=== PATIENT | female | born 1965 | race Caucasian/White ===

== ENCOUNTER → 2016-12-03 | Outpatient (CLI) | payer OTHER ==
[~2016-12-03] MED LIST: LORA10TA2 PO
[2016-12-03 19:31] LABS: ANION GAP 8 MEQ/L (8-16); BLOOD UREA NITROGEN 13 MG/DL (7-18); CARBON DIOXIDE LEVEL 28 MEQ/L (21-32); CHLORIDE LEVEL 105 MEQ/L (98-107); CREATININE FOR GFR 0.71 MG/DL (0.55-1.02); GLOMERULAR FILTRATION RATE > 60.0 (>51); GLUCOSE, FASTING 69 MG/DL (70-105); POTASSIUM SERUM 4.2 MEQ/L (3.5-5.1); SODIUM LEVEL 141 MEQ/L (136-145)
[2016-12-03 19:59] LABS: BASO # 0.2 K/mm3 (0.0-0.2); BASO % 1.7 % (0.0-1.0); EOS # 0.1 K/mm3 (0.0-0.50); LARGE UNSTAINED CELL # 0.1 K/mm3 (0.0-0.4); LARGE UNSTAINED CELL % 1.1 % (0.0-4.0); LYMPH # 2.1 K/mm3 (1.5-4.5); LYMPH % 21.9 % (24.0-44.0); MEAN CORPUSCULAR HEMOGLOBIN 30.6 pg (27.0-33.0); MEAN CORPUSCULAR HGB CONC 32.4 g/dl (32.0-36.5); MEAN CORPUSCULAR VOLUME 94.5 fl (80.0-96.0); MONO # 0.4 K/mm3 (0.0-0.8); NEUTROPHILS # 6.3 K/mm3 (1.8-7.7); NEUTROPHILS % 70.4 % (36.0-66.0); PLATELET COUNT, AUTOMATED 202 k/mm3 (150-450); RED CELL DISTRIBUTION WIDTH 13.5 % (11.5-14.5)
== END ==
LOC: M WUC 13:55
PROVIDERS: ATTEND Emergency Medicine
DX: N81.4 Uterovaginal prolapse, unspecified (principal)

== ENCOUNTER 2016-12-13 05:34 | Day surgery (SDC) | payer OTHER ==
[2016-12-13] VITALS (7 sets, daily range): BP systolic 97–128; BP diastolic 60–71
[~2016-12-13] VITALS: Ht 167.6 cm; Wt 72.6 kg
[2016-12-13] MEDS ORDERED: CIPROFLOXACIN 400 MG in APPROPRIATE DILUENT 1 EA IV ONE (05:45)
[2016-12-13] MEDS ORDERED: CLINDAMYCIN 900 MG in APPROPRIATE DILUENT 1 EA IV ONE (05:45)
[2016-12-13] MEDS: LR 1,000 ML IV SCH ×4 (06:55→20:15)
[2016-12-13] MEDS ORDERED: BUPIVACAINE/EPIN 0.25% 30 ML VIAL As Ordered ONE ×2 (08:18→09:10)
[2016-12-13] MEDS ORDERED: BUPIVACAINE HCL 0.25% 30 ML VIAL As Ordered ONE (08:24)
[2016-12-13] MEDS ORDERED: MIDAZOLAM INJ 2 MG/2 ML VIAL (J2250) As Ordered ONE (08:39)
[2016-12-13] MEDS ORDERED: PROPOFOL 500 MG/50 ML VIAL As Ordered ONE (08:39)
[2016-12-13] MEDS ORDERED: fentaNYL 250 MCG/5 ML INJECTION (J3010) As Ordered ONE (08:39)
[2016-12-13] MEDS ORDERED: LIDOCAINE 2% INJ 100 MG/5 ML SDV (FOR ANES.) As Ordered ONE (08:40)
[2016-12-13] MEDS ORDERED: PHENYLephrine HCL 500 MCG/5 ML (100MCG/ML) SYRINGE (J2370) As Ordered ONE (08:40)
[2016-12-13] MEDS ORDERED: ONDANSETRON 4MG/2ML VIAL (J2405) As Ordered ONE (08:40)
[2016-12-13] MEDS ORDERED: dexameTHASONE 4 MG/ML 1ML VIAL (J1100) As Ordered ONE ×4 (08:40)
[2016-12-13] MEDS ORDERED: ePHEDrine SULFATE 25 MG/5 ML(5MG/ML) SYRINGE As Ordered ONE (08:40)
[2016-12-13] MEDS ORDERED: ROCURONIUM BROMIDE 50 MG/5 ML VIAL As Ordered ONE ×2 (08:40)
[2016-12-13] MEDS ORDERED: KETOROLAC 60 MG/2 ML VIAL (J1885) As Ordered ONE (10:18)
[2016-12-13] MEDS ORDERED: ESTROGENS VAGINAL CREAM 30GM As Ordered ONE (10:33)
[2016-12-13] MEDS ORDERED: BUPIVACAINE HCL 0.25% 30 ML VIAL XX ONE (10:41)
[2016-12-13] MEDS: BUPIVACAINE/EPIN 0.25% 30 ML VIAL XX ONE (10:42)
[2016-12-13] MEDS ORDERED: NEOSTIGMINE 1MG/ML 5 ML SYRINGE (J2710) As Ordered ONE (10:51)
[2016-12-13] MEDS ORDERED: GLYCOPYRROLATE INJ 0.2 MG/ML 2 ML VIAL As Ordered ONE ×2 (10:51)
[2016-12-13] MEDS ORDERED: ESTROGENS VAGINAL CREAM 30GM PV ONE (11:06)
[2016-12-13] MEDS ORDERED: MEPERIDINE INJ 25 MG/ML VIAL (J2175) IV PRN (12:15)
[2016-12-13] MEDS ORDERED: HYDROmorphone HCL 2 MG/ML 1ML VIAL (J1170) As Ordered ONE (12:15)
[2016-12-13] MEDS ORDERED: LR 1,000 ML IV SCH (12:15)
[2016-12-13] MEDS ORDERED: MORPHINE 4 MG/ML 1ML SYRINGE IV PRN (12:15)
[2016-12-13] MEDS ORDERED: PERCOCET 5MG/325MG TAB PO PRN ×3 (12:15)
[2016-12-13] MEDS ORDERED: METOCLOPRAMIDE INJ 10MG/2ML VIAL (J2765) IV PRN (12:15)
[2016-12-13] MEDS ORDERED: PROMETHAZINE INJ 25 MG/ML VIAL (J2550) IV PRN (12:15)
[2016-12-13] MEDS ORDERED: ONDANSETRON 4MG/2ML VIAL (J2405) IV PRN (12:15)
[2016-12-13] MEDS ORDERED: fentaNYL 100 MCG/2 ML INJECTION (J3010) IV PRN (12:15)
[2016-12-13] MEDS ORDERED: zolPIDEM TARTRATE 10MG TAB PO PRN (12:15)
[2016-12-13] MEDS ORDERED: LR 500 ML IV SCH (13:15)
--- NOTE | 2016-12-13 17:36 | RO ---
DATE OF PROCEDURE: 12/13/2016 PREOPERATIVE DIAGNOSIS: Pelvic organ prolapse with cystocele, rectocele and uterine prolapse. POSTOPERATIVE DIAGNOSIS: Pelvic organ prolapse with cystocele, rectocele and uterine prolapse. PROCEDURE: 1. Robotic-assisted laparoscopic hysterectomy. 2. Robotic-assisted laparoscopic Bell's culdoplasty. 3. Anterior colporrhaphy. 4. Posterior colporrhaphy. 5. Perineorrhaphy. 6. Cystoscopy. 7. Bilateral salpingo-oophorectomy. SURGEON: Whitney Dinh MD BASKETBALL REFEREE: Nazario Vega MD ANESTHESIA: General endotracheal anesthesia. SPECIMENS: Cervix, uterus, bilateral fallopian tube and ovaries. PREOPERATIVE ANTIBIOTICS: Flagyl and clindamycin. INTRAVENOUS FLUIDS: 1800 mL of lactated Ringer's solution. OPERATIVE FINDINGS: Patient with approximately 8-week size uterus. Cystoscopic findings revealed good uterine efflux bilaterally. No evidence of trauma in bladder or foreign body. INDICATION FOR PROCEDURE: This patient is a 51-year-old with complaints of pelvic organ prolapse with significant cystocele, rectocele and uterine prolapse. The patient desires surgical repair. DESCRIPTION OF PROCEDURE: After informed consent was obtained and written consent was reviewed, the patient was brought to the operating room where general endotracheal anesthesia was obtained. She was then placed in the lithotomy position and was prepped and draped in the normal sterile fashion. A time-out in the operating room was then performed, identifying the patient, procedure to be performed, as well as drug allergies. A speculum was then placed in the vagina revealing the cervix. Anterior and posterior aspect of the cervix was stitched with #0 Vicryl. The uterus was then sequentially dilated using Hanks dilator. A Smart Device [employer] uterine manipulator was then advanced through the cervical os for means to manipulate the uterus. The uterine balloon was insufflated with 10 mL of air and a cervical cap was then placed over the cervix. The vaginal sleeve was then advanced down to the vagina. Instruments were removed from the vagina. Cabrera catheter was then placed and set to gravity. Gloves were changed and attention was turned to the patient's abdomen where a Veress needle was placed through the umbilicus. A pneumoperitoneum was then obtained with CO2 gas. The supraumbilical area was then infused with 0.25% Marcaine. An incision was made in this area and a 12 mm trocar and sleeve was advanced through this incision. The laparoscope was then replaced revealing intra-abdominal placement. Two lateral ports, left and to the right of the umbilicus, were placed. Each of these ports were infused with 0.25% Marcaine. The 8 mm trocar and sleeve was advanced through each one of these incisions under direct visualization. A fourth trocar was placed on the left side of the patient's abdomen. This area was infused with 0.25% Marcaine. An incision was made in this area. Another 8 mm trocar was advanced through this incision under direct visualization. Next, the da Delmi was then advanced to the patient's table and was docked utilizing the camera arm and two operative arms. Utilizing da Delmi equipment with bipolar cautery, the utero-ovarian ligaments were then cauterized and ligated with good hemostasis noted bilaterally. The round ligaments on both sides were then cauterized and ligated with good hemostasis noted. The anterior lip of the broad ligaments were then dissected along the bladder, creating a bladder flap. The remainder of the broad ligament and cardinal ligaments were then cauterized, then ligated with good hemostasis noted. The uterine arteries were then skeletonized bilaterally and was then cauterized and ligated with good hemostasis noted. The anterior and posterior colpotomies were then made and the uterus was removed vaginally. Surgical sites were inspected and noted to be hemostatic. Next, bilateral salpingo-oophorectomy was then performed. The right adnexa was placed on traction. The infundibulopelvic ligament was then cauterized and ligated with good hemostasis noted. The specimen was brought out through the vaginal incision. In a similar fashion, the left adnexa was placed on traction. The left infundibulopelvic ligament was then cauterized and ligated with good hemostasis noted. The specimen was then brought out through the vaginal incision. Bell's culdoplasty: The uterosacral ligaments were identified bilaterally. Using #0 Vicryl, this was passed through the posterior vaginal cuff out to the left uterosacral ligament, incorporating the peritoneum through the right uterosacral out of the vaginal cuff. The suture was then tagged for later to be tied down after the vaginal cuff closure. Next, the vaginal cuff was closed using a 2-0 V-Loc system in a running fashion. Surgical sites were inspected and noted to be hemostatic. Next, the da Delmi robot was then undocked. Anterior colporrhaphy: A midline anterior defect was appreciated and Allis clamps were placed in the midline up to the level of the bladder neck. The mucosa was then injected using 0.25% Marcaine with epinephrine for hydrodissection. Midline incision was made and the mucosa was dissected away from the submucosal. Next, the endopelvic fascia was then plicated using #2-0 Vicryl in the midline. Excessive tissue was then trimmed and the vaginal mucosa was closed in the midline using #2-0 Vicryl, posterior repair. Posterior colporrhaphy and Perineorrhaphy: Attention was then turned once again focused on the posterior compartment. The vaginal cuff in the midline was placed on traction with Allis clamps. A triangular shape incision was made in the perineal skin. The mucosa was then sharply dissected away from the submucosa in the midline, extended approximately 6 cm along the posterior vaginal wall in the midline. The mucosa was then sharply and bluntly from the submucosal bilaterally. The rectovaginal fascia was then plicated using #2-0 Vicryl in the midline. The vaginal mucosa was then trimmed and closed with a running #2-0 Vicryl. Bell's stitch was then tied, suspending the vaginal cuff. The vagina was then packed with Premarin-soaked Kerlix. Cystoscopy was then performed. The Cabrera catheter was removed and the cystoscopy was then performed revealing normal bladder mucosa and bilateral jets. Cabrera catheter was then returned in the patient's bladder and was then set to gravity. Gloves were changed and then attention was turned to the patient's abdomen where all skin incisions were closed with #4-0 Monocryl and dressed with Dermabond. The patient was then taken out of the lithotomy position, was awakened from general anesthesia and was taken to recovery in stable condition. Counts were correct. MTDD
[2016-12-14] VITALS: BP 123/67
[2016-12-14 04:00] VITALS: BP 137/72
[2016-12-14] MEDS: LR 1,000 ML IV SCH (04:15)
[2016-12-14 06:23] LABS: MEAN CORPUSCULAR HEMOGLOBIN 31.3 pg (27.0-33.0); MEAN CORPUSCULAR HGB CONC 33.7 g/dl (32.0-36.5); RED CELL DISTRIBUTION WIDTH 12.4 % (11.5-14.5); WHITE BLOOD COUNT 12.4 K/mm3 (4.0-10.0)
[2016-12-14] MEDS ORDERED: IBUPROFEN 800 MG TAB As Ordered ONE (08:53)
[2016-12-14] MEDS ORDERED: OXYC1TAB23 PO (08:58)
[2016-12-14] MEDS ORDERED: IBUPROFEN 800 MG TAB PO ONE (09:00)
== END 2016-12-14 09:09 | disposition home or self-care (01) ==
LOC: M SDC 05:34 → M PED 13:30 → M SDC 12-14 09:09
PROVIDERS: ATTEND Obstetrics & Gynecology
DX: N81.4 Uterovaginal prolapse, unspecified (principal); N81.10 Cystocele, unspecified; N81.6 Rectocele; F17.290 Nicotine dependence, other tobacco product, uncomplicated; M12.9 Arthropathy, unspecified; Z88.0 Allergy status to penicillin
CPT/HCPCS: 36415; 57260; 57283; 58571; 85027; 86850; 86900; 86901; 88302; 88305; 96374; J0744; J1100; J1170; J1885; J2250; J2370; J2405; J2710; J3010

== ENCOUNTER → 2017-07-24 | Outpatient (CLI) | payer OTHER ==
[~2017-07-24] MED LIST changes: +OXYC1TAB23 PO
[2017-07-24 13:32] LABS: ALBUMIN 3.9 GM/DL (3.2-5.2); ALKALINE PHOSPHATASE 99 U/L (45-117); ALT/SGPT 21 U/L (12-78); ANION GAP 11 MEQ/L (8-16); AST/SGOT 10 U/L (15-37); BILIRUBIN,TOTAL 0.6 MG/DL (0.2-1.0); BLOOD UREA NITROGEN 15 MG/DL (7-18); CALCIUM LEVEL 9.3 MG/DL (8.5-10.1); CARBON DIOXIDE LEVEL 27 MEQ/L (21-32); CHLORIDE LEVEL 106 MEQ/L (98-107); CHOLESTEROL LEVEL 228 MG/DL (<200); CREATININE FOR GFR 0.67 MG/DL (0.55-1.02); GLOMERULAR FILTRATION RATE > 60.0 (>51); GLUCOSE, FASTING 82 MG/DL (70-105); POTASSIUM SERUM 4.3 MEQ/L (3.5-5.1); SODIUM LEVEL 144 MEQ/L (136-145); TOTAL PROTEIN 6.9 GM/DL (6.4-8.2); TRIGLYCERIDES LEVEL 124 MG/DL (<150)
== END ==
LOC: M WUC 09:57
PROVIDERS: ATTEND Emergency Medicine
DX: E78.2 Mixed hyperlipidemia (principal)

== ENCOUNTER 2019-03-18 20:27 | Inpatient (IN) | payer OTHER, SELFPAY ==
[~2019-03-18] VITALS: Ht 167.6 cm; Wt 84.3 kg
[~2019-03-18 20:27] MED LIST changes: -TYLE650T35 PO; -ZANTTAB PO
[2019-03-18] MEDS ORDERED: ZANTTAB PO (20:39)
[2019-03-18 22:45] LABS: BASO % 0.3 % (0.0-1.0); EOS # 0.1 10^3/uL (0.0-0.50); EOS % 0.8 % (0.0-3.0); HEMATOCRIT 46.8 % (36.0-47.0); HEMOGLOBIN 15.6 g/dl (12.0-15.5); LYMPH # 1.8 10^3/uL (1.5-4.5); LYMPH % 23.7 % (24.0-44.0); MEAN CORPUSCULAR HEMOGLOBIN 30.5 pg (27.0-33.0); MEAN CORPUSCULAR HGB CONC 33.3 g/dl (32.0-36.5); MEAN CORPUSCULAR VOLUME 91.4 fl (80.0-96.0); MONO # 0.5 10^3/uL (0.0-0.8); MONO % 6.2 % (0.0-5.0); NEUTROPHILS # 5.1 10^3/uL (1.8-7.7); NEUTROPHILS % 68.6 % (36.0-66.0); PLATELET COUNT, AUTOMATED 197 10^3/uL (150-450); RED BLOOD COUNT 5.12 10^6/uL (4.00-5.40); WHITE BLOOD COUNT 7.4 10^3/uL (4.0-10.0)
[2019-03-18] MEDS ORDERED: NS 1,000 ML IV ONE (23:15)
[2019-03-19] VITALS (8 sets, daily range): BP systolic 122–145; BP diastolic 70–86
[2019-03-19 00:11] LABS: ALBUMIN 3.9 GM/DL (3.2-5.2); ALT/SGPT 721 U/L (12-78); BILIRUBIN,DIRECT 2.2 MG/DL (0.0-0.2); BILIRUBIN,TOTAL 3.1 MG/DL (0.2-1.0); BLOOD UREA NITROGEN 15 MG/DL (7-18); CALCIUM LEVEL 10.2 MG/DL (8.5-10.1); CARBON DIOXIDE LEVEL 28 MEQ/L (21-32); CHLORIDE LEVEL 105 MEQ/L (98-107); GLOMERULAR FILTRATION RATE > 60.0 (>51); GLUCOSE, FASTING 103 MG/DL (70-100); LIPASE 1698 U/L (73-393); POTASSIUM SERUM 3.7 MEQ/L (3.5-5.1); SODIUM LEVEL 140 MEQ/L (136-145); TOTAL PROTEIN 7.6 GM/DL (6.4-8.2)
--- NOTE | 2019-03-19 00:42 | REPVR ---
EXAM: US Abdomen Limited, Right Upper Quadrant EXAM DATE/TIME: 03/18/2019 11:39 PM CLINICAL HISTORY: 53 years old, female; Abdominal pain; Epigastric; Additional info: Ruq pain/elevated enzymes TECHNIQUE: Imaging protocol: Real-time ultrasound of the abdomen with image documentation. Examination was focused on the right upper quadrant. COMPARISON: No relevant prior studies available. FINDINGS: Liver: Normal. No masses. Gallbladder: Distended gallbladder. Gallstones and sludge. Gallbladder wall thickness is normal measuring 1.6 mm. No pericholecystic fluid. Common bile duct: Common bile duct is dilated measuring 13.8 mm. Mild intrahepatic ductal dilatation. No ductal stones. Pancreas: Pancreas is not seen secondary to overlying bowel cancer. Right kidney: Right kidney is unremarkable measuring 2.2 cm. Intraperitoneal space: No free fluid. IMPRESSION: Distended gallbladder. Gallstones and sludge. Gallbladder wall thickness is normal measuring 1.6 mm. No pericholecystic fluid. Common bile duct is dilated measuring 13.8 mm. Mild intrahepatic ductal dilatation. No ductal stones. Distal stones can not be completely excluded further evaluation with MRCP is recommended. Electronically signed by: Xenia New On 03/19/2019 00:42:27 AM
[2019-03-19] MEDS ORDERED: ZANTTAB PO (02:51)
[2019-03-19] MEDS ORDERED: TYLE650T35 PO (02:51)
[2019-03-19] MEDS ORDERED: KCL 40MEQ IN D5/0.45NS 1000ML 1,000 ML IV SCH (03:15)
[2019-03-19] MEDS ORDERED: ACETAMINOPHEN TAB 650MG DOSE (2X325MG) PO PRN (03:15)
[2019-03-19] MEDS ORDERED: MOM 30ML SUSPENSION UDC PO PRN (03:15)
[2019-03-19] MEDS ORDERED: MORPHINE 4 MG/ML 1ML VIAL/SYRINGE (J2270) IV PRN (03:15)
--- NOTE | 2019-03-19 03:24 | HPEPDOC ---
General Date of Admission Chief Complaint The patient is a 53-year-old female admitted with a reason for visit of Abd Pain. Source: Patient, RN/MD History of Present Illness ms. Marroquin is a 53 years old woman with no significant medical hx, who presented to Urgent Care with worsening abdominal pain and nausea of 2 weeks duration. Pain is located in epigastrium and radiates to the RUQ. Pain has become worse yesterday. Pt denies vomiting, fever or chills. She was noted to have a Lipase level of 1698, T Bili 3.1, AST 185, ALT 721, Alk Phos 533. CBC and chemistry are otherwise normal. US abd showed gall stones, CBD dilatation at 13.8 mm and no visible ductal stone. Vitals normal, no fever. Dr. James was consulted from ER. He will see the pt in the morning and plan for ERCP. Home Medications Scheduled PRN Acetaminophen (Tylenol Arthritis) 650 Mg Tablet.er, 1,300 MG PO BID PRN for PAIN, (Reported) Ranitidine Hcl (Zantac) 150 Mg Tablet, 1 TAB PO BID PRN for ACID REFLUX, (Reported) Allergies Coded Allergies: Penicillins (Verified Allergy, Unknown, 03/18/19) Past Medical History Medical History NONE Surgical History Breast mass biopsy, Hysterectomy, Prolapsed blader repair Family History Significant Family History: No pertinent family hx Social History * Smoker: Denies Alcohol: Denies Drugs: denies A-FIB/CHADSVASC A-FIB History Current/History of A-Fib/PAF?: No Review of Systems Constitutional: Denies: Chills, Fever Eyes: Denies: Pain ENT: Denies: Head Aches Skin: Denies: Rash, Lesions Pulmonary: Denies: Dyspnea, Cough Cardiovascular: Denies: Chest Pain Gastrointestinal: Reports: Nausea, Abdominal Pain; Denies: Vomiting Genitourinary: Denies: Dysuria Musculoskeletal: Denies: Neck Pain, Back Pain Neurological: Denies: Weakness, Numbness Psych: Reports: Mood Normal; Denies: Anxiety Physical Examination General Exam: Positive: Alert, Cooperative, No Acute Distress Eye Exam: Positive: PERRLA ENT Exam: Positive: Atraumatic Neck Exam: Positive: Supple; Negative: JVD Chest Exam: Positive: Clear to auscultation, Normal air movement Heart Exam: Positive: Rate Normal, Regular Rhythm Abdomen Exam: Positive: Normal bowel sounds, Soft, Tenderness (mild tenderness; no guarding) Extremity Exam: Negative: Edema Skin Exam: Negative: Rash, Breakdown, Lesion Neuro Exam: Positive: Normal Speech Psych Exam: Positive: Mental status NL, Mood NL Vital Signs Vital Signs Date Time Temp Pulse Resp B/P (MAP) Pulse Ox O2 Delivery O2 Flow Rate FiO2 03/19/19 01:04 67 18 144/71 (95) 98 Room Air 03/18/19 22:51 98.5 Laboratory Data Labs 24H Laboratory Tests 2 03/18/19 21:07: Urine Color YELLOW, Urine Appearance CLEAR, Urine pH 5.0, Urine Specific [place] 1.001L, Urine Protein NEGATIVE, Urine Glucose (UA) NEGATIVE, Urine Ketones NEGATIVE, Urine Blood 2+H, Urine Nitrite NEGATIVE, Urine Bilirubin NEGATIVE, Urine Urobilinogen 0.2, Urine Leukocyte Esterase NEGATIVE, Urine WBC (Auto) 0, Urine RBC (Auto) 0, Urine Hyaline Casts (Auto) 0, Urine Bacteria (Auto) NEGATIVE, Urine Squamous Epithelial Cells 0, Urine Sperm (Auto) 03/18/19 22:30: Immature Granulocyte % (Auto) 0.4, White Blood Count 7.4, Red Blood Count 5.12, Hemoglobin 15.6H, Hematocrit 46.8, Mean Corpuscular Volume 91.4, Mean Corpu scular Hemoglobin 30.5, Mean Corpuscular Hemoglobin Concent 33.3, Red Cell Distribution Width 12.3, Platelet Count 197, Neutrophils (%) (Auto) 68.6H, Lymphocytes (%) (Auto) 23.7L, Monocytes (%) (Auto) 6.2H, Eosinophils (%) (Auto) 0.8, Basophils (%) (Auto) 0.3, Neutrophils # (Auto) 5.1, Lymphocytes # (Auto) 1.8, Monocytes # (Auto) 0.5, Eosinophils # (Auto) 0.1, Basophils # (Auto) 0.0, Nucleated Red Blood Cells % (auto) 0.0, Anion Gap 7L, Glomerular Filtration Rate > 60.0, Calcium Level 10.2H, Aspartate Amino Transf (AST/SGOT) 185H, Alanine Aminotransferase (ALT/SGPT) 721H, Alkaline Phosphatase 533H, Total Bilirubin 3.1#H, Direct Bilirubin 2.2H, Total Protein 7.6, Albumin 3.9, Albumin/Globulin Ratio 1.05, Lipase 1698H CBC/BMP Laboratory Tests 03/18/19 22:30 Red Blood Count 5.12, Mean Corpuscular Volume 91.4, Mean Corpuscular Hemoglobin 30.5, Mean Corpuscular Hemoglobin Concent 33.3, Red Cell Distribution Width 12.3, Neutrophils (%) (Auto) 68.6 H, Lymphocytes (%) (Auto) 23.7 L, Monocytes (%) (Auto) 6.2 H, Eosinophils (%) (Auto) 0.8, Basophils (%) (Auto) 0.3, Neutrop hils # (Auto) 5.1, Lymphocytes # (Auto) 1.8, Monocytes # (Auto) 0.5, Eosinophils # (Auto) 0.1, Basophils # (Auto) 0.0 Assessment/Plan Gallstone Pancreatitis - Admit to inpatient - GI and Surgery consults - NPO, IV fluid, pain meds - Monitor and supplement electrolytes - MRCP tomorrow - plan for tyshawn after ERCP - Repeat LFTs and Lipase - No clinical indication for antibiotic use Plan / VTE VTE Prophylaxis Ordered?: Yes Plan Anticipated Discharge: Home CLIF VAZQUEZ MD March 19, 2019 03:24
[2019-03-19] MEDS: PANTOPRAZOLE 40MG INJ (PROTONIX) (C9113) IV SCH (08:10)
[2019-03-19] MEDS: HEPARIN SOD (PORCINE) 5000 UNITS/ML VIAL SC SCH ×2 (08:10→21:08)
[2019-03-19 08:30] LABS: BASO % 0.1 % (0.0-1.0); EOS # 0.1 10^3/uL (0.0-0.50); EOS % 0.7 % (0.0-3.0); HEMATOCRIT 44.8 % (36.0-47.0); HEMOGLOBIN 15.1 g/dl (12.0-15.5); LYMPH % 14.1 % (24.0-44.0); MEAN CORPUSCULAR HEMOGLOBIN 30.6 pg (27.0-33.0); MEAN CORPUSCULAR HGB CONC 33.7 g/dl (32.0-36.5); MEAN CORPUSCULAR VOLUME 90.7 fl (80.0-96.0); MONO # 0.5 10^3/uL (0.0-0.8); MONO % 7.6 % (0.0-5.0); NEUTROPHILS # 5.2 10^3/uL (1.8-7.7); NEUTROPHILS % 77.2 % (36.0-66.0); PLATELET COUNT, AUTOMATED 186 10^3/uL (150-450); RED BLOOD COUNT 4.94 10^6/uL (4.00-5.40); WHITE BLOOD COUNT 6.7 10^3/uL (4.0-10.0)
[2019-03-19 08:39] LABS: INR 0.89; PROTHROMBIN TIME 12.1 SECONDS (12.1-14.4)
[2019-03-19 08:40] LABS: PARTIAL THROMBOPLASTIN TIME 35.7 SECONDS (25.4-37.6)
[2019-03-19 08:58] LABS: ALBUMIN 3.9 GM/DL (3.2-5.2); ALT/SGPT 622 U/L (12-78); BLOOD UREA NITROGEN 11 MG/DL (7-18); CALCIUM LEVEL 8.7 MG/DL (8.5-10.1); CARBON DIOXIDE LEVEL 26 MEQ/L (21-32); CHLORIDE LEVEL 108 MEQ/L (98-107); GLOMERULAR FILTRATION RATE > 60.0 (>51); GLUCOSE, FASTING 122 MG/DL (70-100); MAGNESIUM LEVEL 2.1 MG/DL (1.8-2.4); SODIUM LEVEL 140 MEQ/L (136-145); TOTAL PROTEIN 6.8 GM/DL (6.4-8.2)
[2019-03-19 09:17] LABS: LIPASE 4151 U/L (73-393)
[2019-03-19] MEDS ORDERED: LR 1,000 ML IV ONE (09:30)
[2019-03-19] MEDS: LR 1,000 ML IV SCH ×3 (09:30→21:08)
[2019-03-19 12:12] LABS: HEMATOCRIT 42.6 % (36.0-47.0); HEMOGLOBIN 14.4 g/dl (12.0-15.5); MEAN CORPUSCULAR HEMOGLOBIN 30.4 pg (27.0-33.0); MEAN CORPUSCULAR HGB CONC 33.8 g/dl (32.0-36.5); MEAN CORPUSCULAR VOLUME 89.9 fl (80.0-96.0); PLATELET COUNT, AUTOMATED 192 10^3/uL (150-450); RED BLOOD COUNT 4.74 10^6/uL (4.00-5.40)
[2019-03-19 12:36] LABS: ALBUMIN 3.3 GM/DL (3.2-5.2); BILIRUBIN,DIRECT 1.9 MG/DL (0.0-0.2); TOTAL PROTEIN 7.1 GM/DL (6.4-8.2)
--- NOTE | 2019-03-19 13:34 | CR.PDOC ---
General Date of Consultation: March 19, 2019 Referring Provider: REJI MAYS MD Attending Physician: LUCIAN STEEN MD Consultation HPI: 53 year old female patient with no chronic medical comorbidities, presented to the ED after being referred from urgent care. She reported to urgent care with severe epigastric pain and was found to have abnormal labs. Her abdominal pain began around 2 weeks ago with few intermittent episodes of abdominal pain, lasting few hours and then resolved spontaneously, and recurrent episode which started 4 days ago became constant causing her to present to ED. She does not recall if any meals triggered pain. Pain is now constant, located in epigastric region, ranked as a 10/10, and is worsened with deep breaths. She has had some mild nausea, loss of appetite, and chronic constipation. Pertinent negative GI symptoms: Patient denies vomiting, diarrhea, early satiety or unintentional weight loss. No history of hematemesis, melena or hematochezia. Review of Systems: GI: as stated above CVS: No chest pain, No palpitations, No leg swelling. RS: No Shortness of breath, No Wheezing, no cough [employer]OR [employer]ES: No dizziness, No motor weakness, No sensory problems Hematology: No bruising, No gum bleeding, Musculoskeletal: No joint pain, ambulating well. Skin: No rash : No hematuria, No burning sensation of the urine ENT: No ear discharge/ pain, No dysphagia. Eyes: No photophobia. Jaundice Home medications: reviewed. Antithrombotic agents - none Medical h/o: As above. Surgical h/o: Hysterectomy, pelvic floor surgery for rectal and vaginal prolapse years ago Social h/o: Alcohol -denies , smoking - former smoker, IVDA/ drugs - denies . Family h/o of GI cancers - None Prior Endoscopies: --- EGD None --- Colonoscopy None Prior GI evaluations: None in [facility] Exam: Vitals: reviewed General: Alert and oriented x 3, not in distress HEENT: NO pallor, scleral icterus. Normal oropharynx, NO cervical lymph nodes. Chest: symmetric with bilateral clear air entry, CVS: S1, S2 heard, normal, no murmurs Abdomen: non-distended, surgical scars from prior laparoscopic surgeries, soft, diffusely tender to palpation with worsening pain in epigastric region, no palpable masses, normal bowel sounds heard, positive murphys sign Extremities: no pedal edema, pulses palpable. [employer]: no focal motor or sensory deficits. Moves all extremities Skin: no rash. Labs: reviewed. Imaging: reviewed Liver U/S: distended GB with no wall thickening or pericholic fluid, gallstones and sludge present, dilated CBD at 13.8 mm, mildly dilated intrahepatic ducts Impression: -- Acute onset epigastric pain with nausea and vomiting and labs showing elevated lipase and US abdomen showing dilated CBD with gallstones ( also noted slightly dilated intrahepatic ducts) -- Likely Acute biliary pancreatitis with passed CBD stone vs CBD stone at ampulla. -- Elevated bilirubin with transaminitis -- DDx- likely choledocholithiasis vs passed CBD stone. US abdomen did not show any CBD stones. No evidence of cholangitis. -- Needs further evaluation. Recommendations: - Patient educated about the test results, possible differential diagnoses and All questions answered. - Keep patient NPO. - IV fluids -- please give ringers lactate 1 liter bolus and start on LR drip at 200 ml/ hr drip rate for 12 hours (Patient already received 2 liters fo NS). Adjust fluid rate based on urine output and Hemodilution. Target for urine output 30 ml/hr. - Monitor CBC, Liver panel. - to consider MRCP or ERCP depending on the clinical course. - The ERCP procedure, indications, risks (bleeding, perforation, infection, hypotension, respiratory depression, allergy, need for endotracheal intubation, surgery, colostomy, cardiac arrest, even ), benefits, limitations (e.g., missing a lesion), and all other alternatives (including no intervention) were explained to the patient who understood and agreed for the procedure. Plan of care discussed with patient and primary team. Patient verbalized understanding and agreed with the plan. Laboratory Data CBC/BMP Laboratory Tests 03/18/19 22:30 Red Blood Count 5.12, Mean Corpuscular Volume 91.4, Mean Corpuscular Hemoglobin 30.5, Mean Corpuscular Hemoglobin Concent 33.3, Red Cell Distribution Width 12.3, Neutrophils (%) (Auto) 68.6 H, Lymphocytes (%) (Auto) 23.7 L, Monocytes (%) (Auto) 6.2 H, Eosinophils (%) (Auto) 0.8, Basophils (%) (Auto) 0.3, Neutrophils # (Auto) 5.1, Lymphocytes # (Auto) 1.8, Monocytes # (Auto) 0.5, Eosinophils # (Auto) 0.1, Basophils # (Auto) 0.0 03/19/19 08:12 Red Blood Count 4.94, Mean Corpuscular Volume 90.7, Mean Corpuscular Hemoglobin 30.6, Mean Corpuscular Hemoglobin Concent 33.7, Red Cell Distribution Width 12.4, Neutrophils (%) (Auto) 77.2 H, Lymphocytes (%) (Auto) 14.1 L, Monocytes (%) (Auto) 7.6 H, Eosinophils (%) (Auto) 0.7, Basophils (%) (Auto) 0.1, Neutrophils # (Auto) 5.2, Lymphocytes # (Auto) 1.0 L, Monocytes # (Auto) 0.5, Eosinophils # (Auto) 0.1, Basophils # (Auto) 0.0, Calcium Level 8.7, Phosphorus Level 3.0, Aspartate Amino Transf (AST/SGOT) 144 H, Alanine Aminotransferase (ALT/SGPT) 622 H, Alkaline Phosphatase 516 H, Total Bilirubin 4.0 H, Total Protein 6.8, Albumin 3.9 03/19/19 12:00 Red Blood Count 4.74, Mean Corpuscular Volume 89.9, Mean Corpuscular Hemoglobin 30.4, Mean Corpuscular Hemoglobin Concent 33.8, Red Cell Distribution Width 12.4 Allergies Coded Allergies: Penicillins (Verified Allergy, Unknown, 03/18/19) Home Medications Scheduled PRN Acetaminophen (Tylenol Arthritis) 650 Mg Tablet.er, 1,300 MG PO BID PRN for PAIN, (Reported) Ranitidine Hcl (Zantac) 150 Mg Tablet, 1 TAB PO BID PRN for ACID REFLUX, (Reported) LUCIAN STEEN MD March 19, 2019 13:34
[2019-03-19] MEDS ORDERED: ISOVUE-300 61% 50ML VIAL (Q9967) As Ordered ONE (14:58)
[2019-03-19] MEDS ORDERED: SUGAMMADEX SODIUM 500 MG/5 ML VIAL (BRIDION) As Ordered ONE (16:10)
[2019-03-19] MEDS ORDERED: LIDOCAINE 2% INJ 100 MG/5 ML SDV (FOR ANES.) As Ordered ONE (16:10)
[2019-03-19] MEDS ORDERED: dexameTHASONE 4 MG/ML 1ML VIAL (J1100) As Ordered ONE (16:10)
[2019-03-19] MEDS ORDERED: PROPOFOL 200 MG/20 ML VIAL As Ordered ONE (16:10)
[2019-03-19] MEDS ORDERED: ROCURONIUM BROMIDE 50 MG/5 ML VIAL As Ordered ONE (16:10)
[2019-03-19] MEDS ORDERED: ONDANSETRON 4MG/2ML VIAL (J2405) As Ordered ONE (16:11)
[2019-03-19] MEDS ORDERED: GLUCAGON FOR INJ 1 MG VIAL (J1610) As Ordered ONE (16:15)
[2019-03-19] MEDS ORDERED: fentaNYL 100 MCG/2 ML INJECTION (J3010) As Ordered ONE (16:20)
[2019-03-19] MEDS ORDERED: MIDAZOLAM INJ 2 MG/2 ML VIAL (J2250) As Ordered ONE (16:20)
[2019-03-19] MEDS ORDERED: PHENYLephrine HCL 500 MCG/5 ML (100MCG/ML) SYRINGE (J2370) As Ordered ONE (17:00)
--- NOTE | 2019-03-19 17:44 | ROOR ---
Patient Name: Cindi Marroquin Procedure Date: 03/19/2019 4:38 PM Date of : 1965 Age: 53 Room: Main OR Gender: Female Note Status: Finalized Procedure: ERCP Indications: Bile duct stone(s), Elevated liver enzymes, Ampullary obstruction associated acute pancreatitis Providers: Vijay Black MD Referring MD: Cm Mg Md Requesting Provider: Medicines: General Anesthesia Complications: No immediate complications. Procedure: Pre-Anesthesia Assessment: - Prior to the procedure, a History and Physical was performed, and patient medications and allergies were reviewed. The patient is competent. The risks and benefits of the procedure and the sedation options and risks were discussed with the patient. All questions were answered and informed consent was obtained. Patient identification and proposed procedure were verified by the physician, the nurse and the anesthesiologist in the procedure room. Mental Status Examination: alert and oriented. Airway Examination: normal oropharyngeal airway and neck mobility. Respiratory Examination: clear to auscultation. CV Examination: normal. Prophylactic Antibiotics: The patient does not require prophylactic antibiotics. Prior Anticoagulants: The patient has taken no previous anticoagulant or antiplatelet agents. ASA Grade Assessment: III - A patient with severe systemic disease. After reviewing the risks and benefits, the patient was deemed in satisfactory condition to undergo the procedure. The anesthesia plan was to use general anesthesia. Immediately prior to administration of medications, the patient was re-assessed for adequacy to receive sedatives. The heart rate, respiratory rate, oxygen saturations, blood pressure, adequacy of pulmonary ventilation, and response to care were monitored throughout the procedure. The physical status of the patient was re-assessed after the procedure. The Duodenoscope was introduced through the mouth, and advanced to the duodenum and used to inject contrast into the bile duct. The ERCP was accomplished without difficulty. The patient tolerated the procedure well. Findings: The cardiac cath technician film was normal. The esophagus was successfully intubated under direct vision without detailed examination of the pharynx, larynx, and associated structures, and upper GI tract. The upper GI tract was grossly normal. The major papilla was bulging. 0.035 inch x 260 cm straight Hydra Jagwire was passed into the biliary tree. The short-nosed traction sphincterotome was passed over the guidewire and the bile duct was then deeply cannulated. Contrast was injected. I personally interpreted the bile duct images. Ductal flow of contrast was adequate. Image quality was adequate. Contrast extended to the entire biliary tree. The main bile duct was diffusely dilated, with a stone causing an obstruction. The largest diameter was 10 mm. The lower third of the main bile duct contained filling defect(s) thought to be a stone. Biliary sphincterotomy was made with a monofilament traction (standard) sphincterotome using ERBE electrocautery. There was no post-sphincterotomy bleeding. The biliary tree was swept with a 12 mm balloon starting at the bifurcation. One stone was removed. No stones remained. Occlusion cholangiogram at the end of the procedure did not show any residual filling defects. Pancreatic duct was neither cannulated nor opacified. One 8.5 Fr by 7 cm plastic stent with a single external flap and a single internal flap was placed into the common bile duct. Bile flowed through the stent. The stent was in good position. Impression: - The major papilla appeared to be bulging. - A filling defect consistent with a stone was seen on the cholangiogram. - The entire main bile duct was dilated, with a stone causing an obstruction. - Choledocholithiasis was found. Complete removal was accomplished by biliary sphincterotomy and balloon extraction. - A biliary sphincterotomy was performed. - The biliary tree was swept. - One plastic stent was placed into the common bile duct. Recommendation: - Avoid aspirin and nonsteroidal anti-inflammatory medicines. - Return patient to [facility] for [facility] care. - NPO for 2 days, then advance as tolerated to resume regular diet. - Use Protonix (pantoprazole) 40 mg IV daily for 3 days. - Continue present medications. - Observe patient's clinical course. - Repeat ERCP in 2 months to remove stent. - Refer to a surgeon for cholecystectomy. ( prefer Cholecystectomy prior to discharge). - Return to GI clinic in [facility] (address [address], [address], [place] [address]) in 4 -- 6 weeks. Please call GI clinic @ [phone] for apppointment date and time. - Return to primary care physician. Vijay Black MD Vijay Black MD 03/19/2019 5:43:56 PM Electronically signed by Vijay Black MD Number of Addenda: 0 Note Initiated On: 03/19/2019 4:38 PM Estimated Blood Loss: Estimated blood loss was minimal.
[2019-03-19] MEDS ORDERED: fentaNYL 100 MCG/2 ML INJECTION (J3010) IV PRN ×2 (18:15→19:30)
[2019-03-19] MEDS ORDERED: PERCOCET 5MG/325MG TAB PO PRN ×2 (18:15→19:30)
[2019-03-19] MEDS ORDERED: LR 1,000 ML IV SCH ×2 (18:15→19:30)
[2019-03-19] MEDS ORDERED: ONDANSETRON 4MG/2ML VIAL (J2405) IV PRN ×2 (18:15→19:30)
--- NOTE | 2019-03-19 18:20 | REP ---
ERCP: 26 views. History: Rule out choledocholithiasis. 50 seconds of fluoroscopy time is reported. Findings: A sequence of 26 last image hold fluoroscopically obtained spot radiographs of the right upper quadrant document endoscopic cannulation, contrast injection, balloon catheter manipulation, and stent placement in the common bile duct. Electronically Signed by Luis Jaramillo MD 03/19/2019 08:10 P
[2019-03-19] MEDS ORDERED: LR 500 ML IV ONE (19:00)
[2019-03-20 02:00] VITALS: BP 121/66
[2019-03-20] MEDS: LR 1,000 ML IV SCH ×2 (04:54→09:00)
[2019-03-20 06:00] VITALS: BP 120/62
[2019-03-20 06:01] LABS: BASO % 0.2 % (0.0-1.0); HEMATOCRIT 41.4 % (36.0-47.0); HEMOGLOBIN 13.7 g/dl (12.0-15.5); LYMPH # 1.1 10^3/uL (1.5-4.5); LYMPH % 18.6 % (24.0-44.0); MEAN CORPUSCULAR HEMOGLOBIN 29.9 pg (27.0-33.0); MEAN CORPUSCULAR HGB CONC 33.1 g/dl (32.0-36.5); MEAN CORPUSCULAR VOLUME 90.4 fl (80.0-96.0); MONO # 0.2 10^3/uL (0.0-0.8); MONO % 3.8 % (0.0-5.0); NEUTROPHILS # 4.4 10^3/uL (1.8-7.7); NEUTROPHILS % 77.1 % (36.0-66.0); PLATELET COUNT, AUTOMATED 190 10^3/uL (150-450); RED BLOOD COUNT 4.58 10^6/uL (4.00-5.40); WHITE BLOOD COUNT 5.8 10^3/uL (4.0-10.0)
[2019-03-20 06:44] LABS: ALBUMIN 3.1 GM/DL (3.2-5.2); ALT/SGPT 402 U/L (12-78); BILIRUBIN,TOTAL 1.4 MG/DL (0.2-1.0); BLOOD UREA NITROGEN 13 MG/DL (7-18); CALCIUM LEVEL 8.8 MG/DL (8.5-10.1); CARBON DIOXIDE LEVEL 27 MEQ/L (21-32); CHLORIDE LEVEL 108 MEQ/L (98-107); CREATININE FOR GFR 0.49 MG/DL (0.55-1.30); GLOMERULAR FILTRATION RATE > 60.0 (>51); GLUCOSE, FASTING 85 MG/DL (70-100); MAGNESIUM LEVEL 1.9 MG/DL (1.8-2.4); PHOSPHORUS LEVEL 4.8 MG/DL (2.5-4.9); POTASSIUM SERUM 3.8 MEQ/L (3.5-5.1); SODIUM LEVEL 141 MEQ/L (136-145); TOTAL PROTEIN 6.5 GM/DL (6.4-8.2)
[2019-03-20 06:45] LABS: LIPASE 2188 U/L (73-393)
[2019-03-20] MEDS: PANTOPRAZOLE 40MG INJ (PROTONIX) (C9113) IV SCH (09:45)
[2019-03-20] MEDS: HEPARIN SOD (PORCINE) 5000 UNITS/ML VIAL SC SCH (09:46)
[2019-03-20 10:00] VITALS: BP 121/72
--- NOTE | 2019-03-20 10:25 | IPNPDOC ---
Subjective Date Seen The patient was seen on 03/20/19. Subjective Chief Complaint/HPI Patient feels much better. Must go home. No nausea, vomiting or diarrhea. No abdominal pain General: Denies: ROS Unobtainable, Chills, Night Sweats, Fatigue, Malaise, Normal Appetite, Other Symptoms Constitutional: Denies: Chills, Fever, Malaise, Night Sweats, Weakness, Fatigue, Weight Loss, Lethargy, Other Eyes: Denies: Pain, Vision change, Conjunctivae inflammation, Eyelid i nflammation, Redness, Other ENT: Denies: Head Aches, Ear Pain, Dysphagia, Sinus Congestion, Post Nasal Drip, Sore Throat, Epistaxis, Other Symptoms Skin: Denies: Rash, Lesions, Jaundice, Bruising, Itching, Dry, Breakdown, Nail Changes, Other Pulmonary: Denies: Dyspnea, Cough, Pleuritic Chest Pain, Other Symptoms Cardiovascular: Denies: Chest Pain, Palpitations, Orthopnea, Paroxysmal Noc. Dyspnea, Edema, Lt Headedness, Other Symptoms Gastrointestinal: Denies: Nausea, Vomiting, Abdominal Pain, Diarrhea, Constipation, Melena, Hematochezia, Other Symptoms Hematologic: Denies: Bruising, Bleeding Excessively, Petecchia, Purpura, Enlarged Lymph Nodes, Other Hematologic Endocrine: Denies: Polydipsia, Polyphagia, Polyuria, Heat Intolerance, Cold Intolerance, Other Endocrine Sx Musculoskeletal: Denies: Neck Pain, Back Pain, Shoulder Pain, Arm Pain, Hand Pain, Leg Pain, Foot Pain, Joint Pain, Muscle Pain, Spasms, Other Symptoms Psych: Denies: Mood Normal, Anxiety, Depression, Memory Issues, Thoughts of Self Harm, Anger, Thoughts of Harming Other, Other Psych Objective Physical Examination General Exam: Positive: Alert, Cooperative, No Acute Distress Eye Exam: Positive: PERRLA ENT Exam: Positive: Atraumatic Neck Exam: Positive: Supple; Negative: JVD Chest Exam: Positive: Clear to auscultation, Normal air movement Heart Exam: Positive: Rate Normal, Regular Rhythm Abdomen Exam: Positive: Normal bowel sounds, Soft, Tenderness (decrease tenderness at the mid abdomen) Extremity Exam: Negative: Edema Skin Exam: Negative: Rash, Breakdown, Lesion Neuro Exam: Positive: Normal Speech Psych Exam: Positive: Mental status NL, Mood NL A-FIB/CHADSVASC A-FIB History Current/History of A-Fib/PAF?: No Assessment /Plan Problems (1) Pancreatitis, gallstone Status: Acute Response to Treatment: Improving Problem Text: Status post-ERCP and extraction of gallstones along with p lacement of biliary stent Discussed with the surgery personal development educator. Dr. Ayala will not be available does feels hence, patient can be restarted on diet. If she tolerates oral feeding. She can be discharged back home and can follow with Dr. Ayala as an outpatient as scheduled for outpatient cholecystectomy Progress diet Pain management DC IV fluid Possible DC name Plan/VTE VTE Prophylaxis Ordered?: Yes Plan Anticipated Discharge: Home VS, I&O, 24H, Fishbone Vital Signs/I&O Vital Signs Date Time Temp Pulse Resp B/P (MAP) Pulse Ox O2 Delivery O2 Flow Rate FiO2 03/20/19 06:00 97.2 61 18 120/62 (81) 94 03/19/19 18:10 2 03/19/19 04:16 Room Air I&O- Last 24 Hours up to 6 AM 03/20/19 06:00 Intake Total 6660 ml Output Total 1350 ml Balance 5310 ml Laboratory Data 24H LABS Laboratory Tests 2 03/19/19 12:00: Nucleated Red Blood Cells % (auto) 0.0, Aspartate Amino Transf (AST/SGOT) 123H, Alanine Aminotransferase (ALT/SGPT) 532H, Alkaline Phosphatase 491H, Total Bilirubin 3.0H, Direct Bilirubin 1.9H, Total Protein 7.1, Albumin 3.3, Alb umin/Globulin Ratio 0.87L 03/20/19 05:32: Nucleated Red Blood Cells % (auto) 0.0, Aspartate Amino Transf (AST/SGOT) 61H, Alanine Aminotransferase (ALT/SGPT) 402H, Alkaline Phosphatase 456H, Total Bilirubin 1.4#H, Total Protein 6.5, Albumin 3.1L, Albumin/Globulin Ratio 0.91L, Immature Granulocyte % (Auto) 0.3, White Blood Count 5.8, Red Blood Count 4.58, Hemoglobin 13.7, Hematocrit 41.4, Mean Corpuscular Volume 90.4, Mean Corpuscular Hemoglobin 29.9, Mean Corpuscular Hemoglobin Concent 33.1, Red Cell Distribution Width 12.3, Platelet Count 190, Neutrophils (%) (Auto) 77.1H, Lymphocytes (%) (Auto) 18.6L, Monocytes (%) (Auto) 3.8, Eosinophils (%) (Auto) 0.0, Basophils (%) (Auto) 0.2, Neutrophils # (Auto) 4.4, Lymphocytes # (Auto) 1.1L, Monocytes # (Auto) 0.2, Eosinophils # (Auto) 0.0, Basophils # (Auto) 0.0, Anion Gap 6L, Glomerular Filtration Rate > 60.0, Blood Urea Nitrogen 13, Creatinine 0.49L, Sodium Level 141, Potassium Level 3.8, Chloride Level 108H, Carbon Dioxide Level 27, Calcium Level 8.8, Phosphorus Level 4.8#, Magnesium Level 1.9, Lipase 2188H CBC/BMP Laboratory Tests 03/19/19 12:00 Red Blood Count 4.74, Mean Corpuscular Volume 89.9, Mean Corpuscular Hemoglobin 30.4, Mean Corpuscular Hemoglobin Concent 33.8, Red Cell Distribution Width 12.4 03/20/19 05:32 Red Blood Count 4.58, Mean Corpuscular Volume 90.4, Mean Corpuscular Hemoglobin 29.9, Mean Corpuscular Hemoglobin Concent 33.1, Red Cell Distribution Width 12.3, Neutrophils (%) (Auto) 77.1 H, Lymphocytes (%) (Auto) 18.6 L, Monocytes (%) (Auto) 3.8, Eosinophils (%) (Auto) 0.0, Basophils (%) (Auto) 0.2, Neutrophils # (Auto) 4.4, Lymphocytes # (Auto) 1.1 L, Monocytes # (Auto) 0.2, Eosinophils # (Auto) 0.0, Basophils # (Auto) 0.0, Calcium Level 8.8, Phosphorus Level 4.8 #, Aspartate Amino Transf (AST/SGOT) 61 H, Alanine Aminotransferase (ALT/SGPT) 402 H, Alkaline Phosphatase 456 H, Total Bilirubin 1.4 #H, Total Protein 6.5, Albumin 3.1 L REJI MAYS MD March 20, 2019 10:25
--- NOTE | 2019-03-20 13:56 | DS.PDOC ---
Discharge Summary General Date of Admission March 19, 2019 at 03:02 Date of Discharge 03/20/19 Attending Physician: REJI MAYS MD Discharge Summary PROCEDURES PERFORMED DURING STAY: None. ADMITTING DIAGNOSES: 1. Abdominal pain, gallstone pancreatitis. DISCHARGE DIAGNOSES: 1. Choledocholithiasis, gallstone pancreatitis, status post ERCP. COMPLICATIONS/CHIEF COMPLAINT: Pancreatitis, Gallstone. HISTORY OF PRESENT ILLNESS: 53 years old white female with past medical history ofsignificant disease was admitted with the chief complaint of abdominal pain, nausea, vomiting the day prior to admission, in ED she was found to have acute pancreatitis secondary to gallstones and was admitted for above with surgery and GI consultations. HOSPITAL COURSE: Status post-ERCP and extraction of gallstones along with placement of biliary stent Discussed with the surgery cargo and container inspector. Dr. Ayala will not be available does s hence, patient can be restarted on diet. If she tolerates oral feeding. She can be discharged back home and can follow with Dr. Ayala as an outpatient as scheduled for outpatient cholecystectomy Progress diet to regular diet, she tolerated diet very well. No symptoms, no abdominal pain, no nausea, no vomiting Pain management was started. Blood patient is pain-free at the present time DC IV fluid, patient is a good oral liquid intake DC home today as patient wishes to go home and does not want to stay in the hospital any longer. Patient is completely asymptomatic and and can be discharged home. Follow with Dr. Julian Ojeda in 1-2 weeks DISCHARGE MEDICATIONS: Please see below. ALLERGIES: Please see below. PHYSICAL EXAMINATION ON DISCHARGE: VITAL SIGNS: Please see below. GENERAL: Normal HEENT: PERRLA. Extraocular muscle intact NECK:. Supple CARDIOVASCULAR EXAMINATION: S1, S2, regular RESPIRATORY EXAMINATION:, Clear to A&P ABDOMINAL EXAMINATION:. Soft, nontender, bowel sounds present EXTREMITIES:. No clubbing, cyanosis or edema SKIN:. Normal NEUROLOGICAL EXAMINATION:, Normal PSYCHIATRIC EXAMINATION:, Normal LABORATORY DATA: Please see below. IMAGING: CT abdomen, see report above PROGNOSIS: Good ACTIVITY: As tolerated. DIET: Low-fat diet DISCHARGE PLAN: Discharged home DISPOSITION: . Home DISCHARGE INSTRUCTIONS: 1. As above. ITEMS TO FOLLOWUP ON ON OUTPATIENT: 1. As above. DISCHARGE CONDITION: Stable. TIME SPENT ON DISCHARGE: Greater than 38 minutes. Vital Signs/I&Os Vital Signs Date Time Temp Pulse Resp B/P (MAP) Pulse Ox O2 Delivery O2 Flow Rate FiO2 03/20/19 10:00 97.7 65 17 121/72 (88) 94 03/19/19 18:10 2 03/19/19 04:16 Room Air I&O- Last 24 Hours up to 6 AM 03/20/19 06:00 Intake Total 6660 ml Output Total 1350 ml Balance 5310 ml Laboratory Data Labs 24H Laboratory Tests 2 03/19/19 19:38: Bedside Glucose (Misc Panel) 96 03/20/19 00:26: Bedside Glucose (Misc Panel) 102 03/20/19 05:32: Immature Granulocyte % (Auto) 0.3, White Blood Count 5.8, Red Blood Count 4.58, Hemoglobin 13.7, Hematocrit 41.4, Mean Corpuscular Volume 90.4, Mean Corpuscular Hemoglobin 29.9, Mean Corpuscular Hemoglobin Concent 33.1, Red Cell Distribution Width 12.3, Platelet Count 190, Neutrophils (%) (Auto) 77.1H, Lymphocytes (%) (Auto) 18.6L, Monocytes (%) (Auto) 3.8, Eosinophils (%) (Auto) 0.0, Basophils (%) (Auto) 0.2, Neutrophils # (Auto) 4.4, Lymphocytes # (Auto) 1.1L, Monocytes # (Auto) 0.2, Eosinophils # (Auto) 0.0, Basophils # (Auto) 0.0, Nucleated Red Blood Cells % (auto) 0.0, Anion Gap 6L, Glomerular Filtration Rate > 60.0, Blood Urea Nitrogen 13, Creatinine 0.49L, Sodium Level 141, Potassium Level 3.8, Chloride Level 108H, Carbon Dioxide Level 27, Calcium Level 8.8, Phosphorus Leve l 4.8#, Aspartate Amino Transf (AST/SGOT) 61H, Alanine Aminotransferase (ALT/SGPT) 402H, Alkaline Phosphatase 456H, Total Bilirubin 1.4#H, Total Protein 6.5, Albumin 3.1L, Magnesium Level 1.9, Albumin/Globulin Ratio 0.91L, Lipase 2188H 03/20/19 11:26: Bedside Glucose (Misc Panel) 117H CBC/BMP Laboratory Tests 03/20/19 05:32 Red Blood Count 4.58, Mean Corpuscular Volume 90.4, Mean Corpuscular Hemoglobin 29.9, Mean Corpuscular Hemoglobin Concent 33.1, Red Cell Distribution Width 12.3, Neutrophils (%) (Auto) 77.1 H, Lymphocytes (%) (Auto) 18.6 L, Monocytes (%) (Auto) 3.8, Eosinophils (%) (Auto) 0.0, Basophils (%) (Auto) 0.2, Neutrophils # (Auto) 4.4, Lymphocytes # (Auto) 1.1 L, Monocytes # (Auto) 0.2, Eosinophils # (Auto) 0.0, Basophils # (Auto) 0.0, Calcium Level 8.8, Phosphorus Level 4.8 #, Aspartate Amino Transf (AST/SGOT) 61 H, Alanine Aminotransferase (ALT/SGPT) 402 H, Alkaline Phosphatase 456 H, Total Bilirubin 1.4 #H, Total Protein 6.5, Albumin 3.1 L FSBS Laboratory Tests Test 03/19/19 19:38 03/20/19 00:26 03/20/19 11:26 Range/Units Bedside Glucose (Misc Panel) 96 102 117 70-105 MG/DL Discharge Medications Scheduled PRN Acetaminophen (Tylenol Arthritis) 650 Mg Tablet.er, 1,300 MG PO BID PRN for PAIN, (Reported) Ranitidine Hcl (Zantac) 150 Mg Tablet, 1 TAB PO BID PRN for ACID REFLUX, (Reported) Allergies Coded Allergies: Penicillins (Verified Allergy, Unknown, 03/18/19) REJI MAYS MD March 20, 2019 13:56
[2019-03-20 14:00] VITALS: BP 101/58
== END 2019-03-20 15:47 | disposition home or self-care (01) | DRG 282 ==
LOC: M ED 20:27 → M ED INP 03-19 03:02 → M MSPAV 03-19 04:35
PROVIDERS: ADMIT Internal Medicine; ATTEND Internal Medicine
PROC: 0F798DZ Dilation of Common Bile Duct with Intraluminal Device, Via Natural or Artificial Opening Endoscopic (ICD-10-PCS; 2019-03-19)
PROC: 0FC98ZZ Extirpation of Matter from Common Bile Duct, Via Natural or Artificial Opening Endoscopic (ICD-10-PCS; principal; 2019-03-19 08:05)
DX: K85.10 Biliary acute pancreatitis without necrosis or infection (principal); K80.70 Calculus of gallbladder and bile duct without cholecystitis without obstruction; Z88.0 Allergy status to penicillin; Z88.8 Allergy status to other drugs, medicaments and biological substances

== ENCOUNTER → 2019-03-18 | Outpatient (CLI) | payer OTHER, SELFPAY ==
[~2019-03-18] MED LIST changes: +LORA-243 PO; -LORA10TA2 PO; +TYLE650T35 PO; +ZANTTAB PO
[2019-03-18 16:53] LABS: BASO % 0.5 % (0.0-1.0); EOS # 0.1 10^3/uL (0.0-0.50); EOS % 1.6 % (0.0-3.0); HEMATOCRIT 45.7 % (36.0-47.0); HEMOGLOBIN 15.2 g/dl (12.0-15.5); LYMPH # 1.4 10^3/uL (1.5-4.5); LYMPH % 24.5 % (24.0-44.0); MEAN CORPUSCULAR HEMOGLOBIN 30.3 pg (27.0-33.0); MEAN CORPUSCULAR HGB CONC 33.3 g/dl (32.0-36.5); MEAN CORPUSCULAR VOLUME 91.2 fl (80.0-96.0); MONO # 0.3 10^3/uL (0.0-0.8); MONO % 5.9 % (0.0-5.0); NEUTROPHILS # 3.8 10^3/uL (1.8-7.7); NEUTROPHILS % 67.3 % (36.0-66.0); PLATELET COUNT, AUTOMATED 211 10^3/uL (150-450); RED BLOOD COUNT 5.01 10^6/uL (4.00-5.40); WHITE BLOOD COUNT 5.6 10^3/uL (4.0-10.0)
[2019-03-18 17:03] LABS: ALBUMIN 3.9 GM/DL (3.2-5.2); ALT/SGPT 833 U/L (12-78); BILIRUBIN,TOTAL 1.2 MG/DL (0.2-1.0); BLOOD UREA NITROGEN 14 MG/DL (7-18); CALCIUM LEVEL 9.4 MG/DL (8.5-10.1); CARBON DIOXIDE LEVEL 29 MEQ/L (21-32); CHLORIDE LEVEL 106 MEQ/L (98-107); CREATININE FOR GFR 0.62 MG/DL (0.55-1.30); GLOMERULAR FILTRATION RATE > 60.0 (>51); GLUCOSE, FASTING 89 MG/DL (70-100); LIPASE 476 U/L (73-393); POTASSIUM SERUM 4.1 MEQ/L (3.5-5.1); SODIUM LEVEL 141 MEQ/L (136-145); TOTAL PROTEIN 7.7 GM/DL (6.4-8.2)
== END ==
LOC: M WUC 14:06
PROVIDERS: ATTEND Physician Assistant
DX: R10.9 Unspecified abdominal pain (principal)

== ENCOUNTER 2019-03-29 11:02 | Day surgery (SDC) | payer OTHER ==
[~2019-03-29] VITALS: Ht 167.6 cm; Wt 83.0 kg
[~2019-03-29 11:02] MED LIST changes: +TYLE650T35 PO; +ZANTTAB PO
[2019-03-29] MEDS ORDERED: LR 1,000 ML IV SCH ×2 (11:30→17:30)
[2019-03-29] MEDS ORDERED: LevoFLOXacin IV 500 MG in APPROPRIATE DILUENT 1 EA IV ONE (11:30)
[2019-03-29] MEDS ORDERED: PROPOFOL 200 MG/20 ML VIAL As Ordered ONE (11:51)
[2019-03-29] MEDS ORDERED: ONDANSETRON 4MG/2ML VIAL (J2405) As Ordered ONE (11:52)
[2019-03-29] MEDS ORDERED: dexameTHASONE 4 MG/ML 1ML VIAL (J1100) As Ordered ONE (11:52)
[2019-03-29] MEDS ORDERED: LIDOCAINE 2% INJ 100 MG/5 ML SDV (FOR ANES.) As Ordered ONE (11:52)
[2019-03-29] MEDS ORDERED: ROCURONIUM BROMIDE 50 MG/5 ML VIAL As Ordered ONE ×2 (11:52→14:16)
[2019-03-29] MEDS ORDERED: MIDAZOLAM INJ 2 MG/2 ML VIAL (J2250) As Ordered ONE (11:53)
[2019-03-29] MEDS ORDERED: fentaNYL 100 MCG/2 ML INJECTION (J3010) As Ordered ONE ×2 (11:53→13:36)
[2019-03-29] MEDS ORDERED: SUGAMMADEX SODIUM 500 MG/5 ML VIAL (BRIDION) As Ordered ONE (14:18)
[2019-03-29] MEDS ORDERED: LIDOCAINE 1% SDV INJ 30 ML VIAL As Ordered ONE (15:02)
[2019-03-29] MEDS ORDERED: BUPIVACAINE HCL 0.25% 30 ML VIAL As Ordered ONE (15:02)
[2019-03-29] MEDS ORDERED: KETOROLAC 60 MG/2 ML VIAL (J1885) As Ordered ONE (15:52)
[2019-03-29] MEDS ORDERED: METOCLOPRAMIDE INJ 10MG/2ML VIAL (J2765) As Ordered ONE (15:53)
[2019-03-29] MEDS ORDERED: fentaNYL 250 MCG/5 ML INJECTION (J3010) As Ordered ONE (16:47)
[2019-03-29] MEDS ORDERED: MEPERIDINE INJ 25 MG/ML VIAL (J2175) IV PRN (17:30)
[2019-03-29] MEDS ORDERED: METOCLOPRAMIDE INJ 10MG/2ML VIAL (J2765) IV PRN (17:30)
[2019-03-29] MEDS ORDERED: PERCOCET 5MG/325MG TAB PO PRN (17:30)
[2019-03-29] MEDS ORDERED: ONDANSETRON 4MG/2ML VIAL (J2405) IV PRN ×2 (17:30→17:45)
[2019-03-29] MEDS ORDERED: fentaNYL 100 MCG/2 ML INJECTION (J3010) IV PRN (17:30)
[2019-03-29] MEDS ORDERED: NORC1TAB7 PO (17:32)
[2019-03-29] MEDS ORDERED: KETOROLAC 30 MG/ML VIAL (J1885) IV PRN (17:45)
[2019-03-29] MEDS ORDERED: NORCO, ANEXSIA 5/325MG TABLET (HYDROcodone/ACETAMINOPHEN) PO PRN ×2 (17:45)
[2019-03-29 18:55] VITALS: BP 137/71
--- NOTE | 2019-04-07 06:08 | ROOPDOC ---
[facility] Report Of Operation Report of Operation DATE OF PROCEDURE: 03/29/19 PREPROCEDURE DIAGNOSES: History of gallstone pancreatitis. POSTPROCEDURE DIAGNOSES: History of gallstone pancreatitis. PROCEDURE: Laparoscopic cholecystectomy. SURGEON: Guanako Norman MD RACING MANAGER: Clive Guillermo MD ANESTHESIA: General anesthesia. ESTIMATED BLOOD LOSS: Approximately 20 mL. COMPLICATIONS: None. REMARKS: Patient was recently admitted in the hospital with gallstone pancreati tis and underwent ERCP, removal of stones and placement of stent with improvement of her symptoms and subsequently saw me in the clinic and she is now taken to the operating room for cholecystectomy. PROCEDURE NOTE: Moderately distended gallbladder. The cystic duct is mildly enlarged not being able to fully be encircled by a 10 mm hemoclips as an Endoloop was placed in addition to the Hemoclip. DESCRIPTION OF PROCEDURE: Patient was given a dose of Levaquin 500 mg IV preoperatively for prophylaxis. She was brought to the operating room, laid supine on the table, compression boots placed for DVT prophylaxis. General endotracheal anesthesia started. Her abdomen then prepped and draped in usual sterile fashion. Surgical timeout was performed prior to starting surgery. Entry into the abdomen done through an incision above the umbilicus. A Veress needle was inserted with a controlled fashion. CO2 insufflation started to pressure 15 mmHg. Using the same incision a 5 mm Visiport was placed under direct vision laparoscope. The area underneath the insertion site was inspected and no injury found. She was then placed in steep reverse Trendelenburg. Her right side was tilted up to further expose the gallbladder. Under direct vision a 11 mm epigastric port and 25 mm working ports placed along the right subcostal line. Operative findings: Her liver is noted to be smooth in contour no nodularities or lesions found. Her gallbladder is mildly thickened, moderately distended. There is still some evidence of some acute inflammation along the gallbladder wall likewise some omental adhesion to the lateral and ventral side of the gallbladder The fundus of the gallbladder was grasped and the gallbladder was elevated superiorly exposing the neck of the gallbladder. The peritoneum overlying the area was opened up and dissected free both anteriorly and posteriorly to help with retraction of the gallbladder. The hepatocystic triangle was approached and dissected using a [place] and instrument. The cystic duct was identified coming off from the next gallbladder this was circumferentially dissected. The cystic artery was identified in its usual position medially behind a small lymph node of [place]ot. This was similarly circumferentially dissected off surrounding adipose tissue. We continued posterior dissection proximally at the next gallbladder until a critical view of safety was achieved whereby only the previously identified duct and artery coursing through the neck the gallbladder. At this point the cystic artery was clipped 4 times and divided. After again checking her anatomy and verifying that the previously identified cystic duct, this was also clipped 4 times and was not so sure how secure the clip was due to the large size of the cystic duct. At this point I fully dissected the gallbladder off the liver plate. A PDS Endoloop was then placed to encircle the cystic duct stump proximal to the clip placement. I partially divided the cystic duct and place an additional clip before fully dividing the cystic duct.. The rest of the gallbladder was then dissected free of the gallbladder bed using Bovie cautery. The gallbladder was then placed in an Endo Catch bag and retrieved outside through the epigastric port site. Under insufflation and inspected the clips and noted this to be in place. No further bleeding noted. No bile leakage noted. The abdomen was insufflated all ports were removed. The epigastric fascial defect repaired with 0 Vicryl in a mattress fashion. Rest of the skin incisions closed with 4-0 Monocryl in subcuticular fashion. Steri- Strips and gauze dressings were placed, the wound. Patient was informed they awakened, extubated and brought to recovery room stable . GUANAKO NORMAN MD April 07, 2019 06:08
== END 2019-03-29 19:00 | disposition home or self-care (01) ==
LOC: M SDC 11:02
PROVIDERS: ATTEND Surgery
DX: K80.10 Calculus of gallbladder with chronic cholecystitis without obstruction (principal); K85.10 Biliary acute pancreatitis without necrosis or infection; K21.9 Gastro-esophageal reflux disease without esophagitis; M15.0 Primary generalized (osteo)arthritis; J30.89 Other allergic rhinitis; Z88.0 Allergy status to penicillin; Z90.710 Acquired absence of both cervix and uterus; Z87.891 Personal history of nicotine dependence
CPT/HCPCS: 47562; 88304; J1100; J1885; J1956; J2250; J2405; J2765; J3010

== ENCOUNTER → 2019-05-06 | Outpatient (CLI) | payer OTHER ==
[~2019-05-06] MED LIST changes: +MIRA3350 PO; +NORC1TAB7 PO
[2019-05-06 16:48] LABS: BASO % 0.5 % (0.0-1.0); EOS # 0.1 10^3/uL (0.0-0.50); EOS % 1.3 % (0.0-3.0); HEMATOCRIT 45.4 % (36.0-47.0); HEMOGLOBIN 15.3 g/dl (12.0-15.5); LYMPH # 1.8 10^3/uL (1.5-4.5); LYMPH % 23.7 % (24.0-44.0); MEAN CORPUSCULAR HEMOGLOBIN 30.2 pg (27.0-33.0); MEAN CORPUSCULAR HGB CONC 33.7 g/dl (32.0-36.5); MEAN CORPUSCULAR VOLUME 89.7 fl (80.0-96.0); MONO # 0.4 10^3/uL (0.0-0.8); MONO % 5.3 % (0.0-5.0); NEUTROPHILS # 5.2 10^3/uL (1.8-7.7); NEUTROPHILS % 68.9 % (36.0-66.0); PLATELET COUNT, AUTOMATED 224 10^3/uL (150-450); RED BLOOD COUNT 5.06 10^6/uL (4.00-5.40); WHITE BLOOD COUNT 7.6 10^3/uL (4.0-10.0)
[2019-05-06 17:01] LABS: ALT/SGPT 31 U/L (12-78); AMYLASE 54 U/L (25-115); BILIRUBIN,DIRECT 0.2 MG/DL (0.0-0.2); BILIRUBIN,TOTAL 0.6 MG/DL (0.2-1.0); BLOOD UREA NITROGEN 12 MG/DL (7-18); CREATININE FOR GFR 0.65 MG/DL (0.55-1.30); GLOMERULAR FILTRATION RATE > 60.0 (>51); LIPASE 105 U/L (73-393); TOTAL PROTEIN 7.2 GM/DL (6.4-8.2)
== END ==
LOC: M WUC 11:49
PROVIDERS: ATTEND Internal Medicine Gastroenterology
DX: K85.10 Biliary acute pancreatitis without necrosis or infection (principal)

== ENCOUNTER 2019-05-18 05:54 | Day surgery (SDC) | payer OTHER ==
[~2019-05-18] VITALS: Ht 167.6 cm; Wt 87.5 kg
[~2019-05-18 05:54] MED LIST changes: +ZANT150T40 PO; -ZANTTAB PO
[2019-05-18] MEDS ORDERED: ISOVUE-300 61% 50ML VIAL (Q9967) As Ordered ONE (06:50)
[2019-05-18] MEDS ORDERED: LR 1,000 ML IV ONE (07:00)
[2019-05-18] MEDS ORDERED: fentaNYL 100 MCG/2 ML INJECTION (J3010) As Ordered ONE ×2 (07:02→07:46)
[2019-05-18] MEDS ORDERED: MIDAZOLAM INJ 2 MG/2 ML VIAL (J2250) As Ordered ONE (07:02)
[2019-05-18] MEDS ORDERED: ROCURONIUM BROMIDE 50 MG/5 ML VIAL As Ordered ONE (07:02)
[2019-05-18] MEDS ORDERED: LIDOCAINE 2% INJ 100 MG/5 ML SDV (FOR ANES.) As Ordered ONE (07:02)
[2019-05-18] MEDS ORDERED: dexameTHASONE 4 MG/ML 1ML VIAL (J1100) As Ordered ONE (07:02)
[2019-05-18] MEDS ORDERED: PROPOFOL 200 MG/20 ML VIAL As Ordered ONE (07:02)
[2019-05-18] MEDS ORDERED: ONDANSETRON 4MG/2ML VIAL (J2405) As Ordered ONE (07:02)
[2019-05-18] MEDS ORDERED: SUGAMMADEX SODIUM 500 MG/5 ML VIAL (BRIDION) As Ordered ONE (07:46)
--- NOTE | 2019-05-18 08:28 | ROOR ---
Patient Name: Cindi Marroquni Procedure Date: 05/18/2019 7:17 AM Date of : 1965 Age: 53 Room: [facility] Gender: Female Note Status: Finalized Procedure: ERCP Indications: Common bile duct stone(s), Biliary stent removal Providers: Vijay Black MD Referring MD: Carole Marroquin MD Requesting Provider: Medicines: Monitored Anesthesia Care Complications: No immediate complications. Procedure: Pre-Anesthesia Assessment: - Prior to the procedure, a History and Physical was performed, and patient medications and allergies were reviewed. The patient is competent. The risks and benefits of the procedure and the sedation options and risks were discussed with the patient. All questions were answered and informed consent was obtained. Patient identification and proposed procedure were verified by the physician, the nurse and the anesthesiologist in the procedure room. Mental Status Examination: alert and oriented. Airway Examination: normal oropharyngeal airway and neck mobility. Respiratory Examination: clear to auscultation. CV Examination: normal. Prophylactic Antibiotics: The patient does not require prophylactic antibiotics. Prior Anticoagulants: The patient has taken no previous anticoagulant or antiplatelet agents. ASA Grade Assessment: II - A patient with mild systemic disease. After reviewing the risks and benefits, the patient was deemed in satisfactory condition to undergo the procedure. The anesthesia plan was to use monitored anesthesia care (MAC). Immediately prior to administration of medications, the patient was re-assessed for adequacy to receive sedatives. The heart rate, respiratory rate, oxygen saturations, blood pressure, adequacy of pulmonary ventilation, and response to care were monitored throughout the procedure. The physical status of the patient was re-assessed after the procedure. The Duodenoscope was introduced through the mouth, and advanced to the duodenum and used to inject contrast into the bile duct. The ERCP was accomplished without difficulty. The patient tolerated the procedure well. Findings: A biliary stent was visible on the home energy inspector film. The esophagus was successfully intubated under direct vision without detailed examination of the pharynx, larynx, and associated structures, and upper GI tract. The upper GI tract was grossly normal. One plastic stent originating in the biliary tree was emerging from the major papilla. The stent was visibly patent. A biliary sphincterotomy had been performed. The sphincterotomy appeared open. One stent was removed from the biliary tree using a snare. A 0.035 inch x 260 cm straight Hydra Jagwire was passed into the biliary tree. The short-nosed traction sphincterotome was passed over the guidewire and the bile duct was then deeply cannulated. Contrast was injected. I personally interpreted the bile duct images. Ductal flow of contrast was adequate. Image quality was adequate. Contrast extended to the entire biliary tree. The lower third of the main bile duct contained filling defect(s) thought to be a stone and sludge. The biliary tree was swept with a 12 mm balloon starting at the bifurcation. Sludge was swept from the duct. Occlusion cholangiogram at the end of the procedure did not show any residual filling defects. Pancreatic duct was neither cannulated nor opacified. Impression: - One visibly patent stent from the biliary tree was seen in the major papilla. - Prior biliary sphincterotomy appeared open. - A filling defect consistent with a stone and sludge was seen on the cholangiogram. - The examination was suspicious for choledocholithiasis. Complete removal was accomplished by sweeping. - One stent was removed from the biliary tree. - The biliary tree was swept and sludge was found. Recommendation: - The patient will be observed post-procedure, until all discharge criteria are met. - Patient has a contact number available for emergencies. The signs and symptoms of potential delayed complications were discussed with the patient. Return to normal activities tomorrow. Written discharge instructions were provided to the patient. - Avoid aspirin and nonsteroidal anti-inflammatory medicines for 1 week. - Clear liquid diet for 1 day, then advance as tolerated to resume previous diet. 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 - Telephone GI clinic if symptomatic. - Perform a colonoscopy for Colon cancer screening in [facility] in 4 -- 6 weeks. Please call GI clinic @ [phone] for apppointment date and time. - Return to primary care physician. Vijay Black MD Vijay Black MD 05/18/2019 8:27:41 AM Electronically signed by Vijay Black MD Number of Addenda: 0 Note Initiated On: 05/18/2019 7:17 AM Estimated Blood Loss: Estimated blood loss: none.
[2019-05-18] MEDS ORDERED: fentaNYL 100 MCG/2 ML INJECTION (J3010) IV PRN (08:45)
[2019-05-18] MEDS ORDERED: METOCLOPRAMIDE INJ 10MG/2ML VIAL (J2765) IV PRN (08:45)
[2019-05-18] MEDS ORDERED: ONDANSETRON 4MG/2ML VIAL (J2405) IV PRN (08:45)
[2019-05-18] MEDS ORDERED: LR 1,000 ML IV SCH (08:45)
[2019-05-18] MEDS ORDERED: PERCOCET 5MG/325MG TAB PO PRN (08:45)
[2019-05-18 09:03] VITALS: BP 126/81
--- NOTE | 2019-05-19 07:52 | REP ---
ERCP: 25 views. History: Endoscopic retrograde. Comparison study: March 17, 2019. Findings: A sequence of 25 last image hold fluoroscopically obtained spot radiographs of the right upper quadrant demonstrate endoscopic removal of common bile duct stent, common bile duct cannulation and contrast injection, balloon catheter manipulation. 54 seconds of fluoroscopy time is reported. Electronically Signed by Luis Jaramillo MD 05/19/2019 09:28 A
== END 2019-05-18 09:40 | disposition home or self-care (01) ==
LOC: M SDC 05:54
PROVIDERS: ATTEND Internal Medicine Gastroenterology
DX: K80.50 Calculus of bile duct without cholangitis or cholecystitis without obstruction (principal); R93.2 Abnormal findings on diagnostic imaging of liver and biliary tract; Z96.89 Presence of other specified functional implants; Z46.59 Encounter for fitting and adjustment of other gastrointestinal appliance and device; Z88.0 Allergy status to penicillin; Z87.891 Personal history of nicotine dependence
CPT/HCPCS: 43264; 43275; 76000; C1887; J1100; J2250; J2405; J3010; Q9967

== ENCOUNTER → 2019-07-08 | Outpatient (CLI) | payer OTHER ==
[2019-07-08 16:38] LABS: ALBUMIN 3.8 GM/DL (3.2-5.2); ALT/SGPT 31 U/L (12-78); AMYLASE 50 U/L (25-115); BILIRUBIN,DIRECT 0.2 MG/DL (0.0-0.2); BILIRUBIN,TOTAL 0.7 MG/DL (0.2-1.0); BLOOD UREA NITROGEN 16 MG/DL (7-18); CREATININE FOR GFR 0.69 MG/DL (0.55-1.30); GLOMERULAR FILTRATION RATE > 60.0 (>51); LIPASE 94 U/L (73-393); TOTAL PROTEIN 6.8 GM/DL (6.4-8.2)
[2019-07-08 16:41] LABS: BASO % 0.5 % (0.0-1.0); EOS # 0.2 10^3/uL (0.0-0.50); EOS % 2.7 % (0.0-3.0); HEMATOCRIT 44.4 % (36.0-47.0); HEMOGLOBIN 14.7 g/dl (12.0-15.5); LYMPH # 1.6 10^3/uL (1.5-4.5); LYMPH % 27.1 % (24.0-44.0); MEAN CORPUSCULAR HEMOGLOBIN 29.8 pg (27.0-33.0); MEAN CORPUSCULAR HGB CONC 33.1 g/dl (32.0-36.5); MEAN CORPUSCULAR VOLUME 89.9 fl (80.0-96.0); MONO # 0.4 10^3/uL (0.0-0.8); MONO % 6.5 % (0.0-5.0); NEUTROPHILS # 3.8 10^3/uL (1.8-7.7); NEUTROPHILS % 62.9 % (36.0-66.0); PLATELET COUNT, AUTOMATED 201 10^3/uL (150-450); RED BLOOD COUNT 4.94 10^6/uL (4.00-5.40)
[2019-07-09 08:03] LABS: H PYLORI QUALITATIVE IgG NEGATIVE (NEGATIVE)
== END ==
LOC: M WUC 11:37
PROVIDERS: ATTEND Internal Medicine Gastroenterology
DX: K29.70 Gastritis, unspecified, without bleeding (principal); K80.50 Calculus of bile duct without cholangitis or cholecystitis without obstruction

== ENCOUNTER → 2019-07-23 | Outpatient (CLI) | payer OTHER ==
--- NOTE | 2019-07-23 09:32 | REP ---
ULTRASOUND ABDOMEN: Real-time sonographic evaluation of the abdomen was performed. Gallbladder has bene surgically removed. There is no intrahepatic or extrahepatic biliary diltation. Common bile duct measuring 3 mm. Echotexture of the liver is diffusely heterogenous. Rounded hypoechoic areas are seen, one anteriorly in the right lobe measuring 1.9 x 1.6 x 1.2 cm and another posteriorly in the right lobe 4.6 x 2.4 x 4.1 cm. The findings suggest heterogenous fatty infiltration with focal areas of spared parenchyma. However underlying parenchymal nodule is not excluded. There is mild hepatomegaly with the length of the liver 18.9 cm in the mid clavicular line. The pancreas is grossly unremarkable. Spleen is mildly enlarged measuring 13.0 x 12.1 x 5.3 cm, splenic index is 834. Kidneys are normal in size and echotexture. Right kidney measuring 12.6 x 5.7 x 4.0 cm and left kidney 12.1 x 5.4 x 5.8 cm. There appears to be an extrarenal pelvis of the right kidney. There is no hydronephrosis. Cyst with a septation in the lower left kidney measures 3.2 x 2.7 x 3.2 cm. Abdominal aorta is normal in caliber with no aneurysm, maximum diameter approximately 2.0 cm and distally 1.7 cm. There is no ascites. IMPRESSION: Status-post cholecystectomy. No biliary dilatation or free fluid. There are findings suggesting heterogenous fatty infiltration of the liver. Two rounded hypoechoic areas may represent sparred parenchyma in the right lobe but underlying nodules can not be excluded. There is mild hepatomegaly. Recommend dedicated MRI of the liver with and without contrast to rule out underlying nodule. Mild splenomegaly. Electronically Signed by Dilip Vasquez MD 07/23/2019 11:31 A
== END ==
LOC: M RAD 07:25
PROVIDERS: ATTEND Internal Medicine Gastroenterology
DX: K85.10 Biliary acute pancreatitis without necrosis or infection (principal); Z90.49 Acquired absence of other specified parts of digestive tract; R16.1 Splenomegaly, not elsewhere classified

== ENCOUNTER 2019-08-31 07:31 | Day surgery (SDC) | payer OTHER ==
[~2019-08-31] VITALS: Ht 167.6 cm; Wt 88.8 kg
[~2019-08-31 07:31] MED LIST changes: +NS 1,000 ML IV ONE
[2019-08-31] MEDS ORDERED: PROPOFOL 200 MG/20 ML VIAL As Ordered ONE ×2 (08:49→09:15)
[2019-08-31] MEDS ORDERED: LIDOCAINE 2% INJ 100 MG/5 ML SDV (FOR ANES.) As Ordered ONE (08:49)
--- NOTE | 2019-08-31 09:39 | ROOR ---
Patient Name: Cindi Marroquin Procedure Date: 08/31/2019 8:46 AM Date of : 1965 Age: 53 Room: [facility] Gender: Female Note Status: Finalized Procedure: Colonoscopy Indications: Screening for colorectal malignant neoplasm Providers: Vijay Black MD Referring MD: Carole Marroquin MD Requesting Provider: Medicines: Monitored Anesthesia Care Complications: No immediate complications. Procedure: Pre-Anesthesia Assessment: - Prior to the procedure, a History and Physical was performed, and patient medications and allergies were reviewed. The patient is competent. The risks and benefits of the procedure and the sedation options and risks were discussed with the patient. All questions were answered and informed consent was obtained. Patient identification and proposed procedure were verified by the physician, the nurse and the anesthesiologist in the procedure room. Mental Status Examination: alert and oriented. Airway Examination: normal oropharyngeal airway and neck mobility. Respiratory Examination: clear to auscultation. CV Examination: normal. Prophylactic Antibiotics: The patient does not require prophylactic antibiotics. Prior Anticoagulants: The patient has taken no previous anticoagulant or antiplatelet agents. ASA Grade Assessment: II - A patient with mild systemic disease. After reviewing the risks and benefits, the patient was deemed in satisfactory condition to undergo the procedure. The anesthesia plan was to use monitored anesthesia care (MAC). Immediately prior to administration of medications, the patient was re-assessed for adequacy to receive sedatives. The heart rate, respiratory rate, oxygen saturations, blood pressure, adequacy of pulmonary ventilation, and response to care were monitored throughout the procedure. The physical status of the patient was re-assessed after the procedure. The Colonoscope was introduced through the anus and advanced to the terminal ileum, with identification of the appendiceal orifice and IC valve. The colonoscopy was performed without difficulty. The patient tolerated the procedure well. The quality of the bowel preparation was good. The terminal ileum, ileocecal valve, appendiceal orifice, and rectum were photographed. Scope insertion time was 4 minutes. Scope withdrawal time was 10 minutes. The total duration of the procedure was 14 minutes. Findings: The perianal and digital rectal examinations were normal. The terminal ileum appeared normal. A 5 mm polyp was found in the cecum. The polyp was sessile. The polyp was removed with a cold snare. Resection and retrieval were complete. Verification of patient identification for the specimen was done by the physician and nurse using the patient's name, date and medical record number. Estimated blood loss was minimal. Multiple small and large-mouthed diverticula were found from sigmoid to ascending colon. There was no evidence of diverticular bleeding. Non-bleeding external and internal hemorrhoids were found during retroflexion. The hemorrhoids were medium-sized. Impression: - The examined portion of the ileum was normal. - One 5 mm polyp in the cecum, removed with a cold snare. Resected and retrieved. - Severe diverticulosis from sigmoid to ascending colon. There was no evidence of diverticular bleeding. - Non-bleeding external and internal hemorrhoids. Recommendation: - Patient has a contact number available for emergencies. The signs and symptoms of potential delayed complications were discussed with the patient. Return to normal activities tomorrow. Written discharge instructions were provided to the patient. - High fiber diet. - Continue present medications. - Await pathology results. - Use fiber, for example Citrucel, Fibercon, Konsyl or Metamucil. - Repeat colonoscopy in 5-10 years for surveillance based on pathology results. - Telephone GI clinic for pathology results in 2 weeks. - Return to primary care physician. Vijay Black MD Vijay Black MD 08/31/2019 9:38:42 AM Electronically signed by Vijay Black MD Number of Addenda: 0 Note Initiated On: 08/31/2019 8:46 AM Estimated Blood Loss: Estimated blood loss was minimal.
[2019-08-31 09:57] VITALS: BP 114/79
== END 2019-08-31 09:58 | disposition home or self-care (01) ==
LOC: M OPP 07:31
PROVIDERS: ATTEND Internal Medicine Gastroenterology
DX: Z12.11 Encounter for screening for malignant neoplasm of colon (principal); K64.8 Other hemorrhoids; D12.0 Benign neoplasm of cecum; K57.30 Diverticulosis of large intestine without perforation or abscess without bleeding; Z87.891 Personal history of nicotine dependence; Z88.0 Allergy status to penicillin

== ENCOUNTER → 2019-09-09 | Outpatient (CLI) | payer OTHER ==
[~2019-09-09] MED LIST changes: -NS 1,000 ML IV ONE
[2019-09-09 16:34] LABS: APPEARANCE, URINE CLEAR (CLEAR); BACTERIA, URINE AUTO NEGATIVE (NEGATIVE); BILIRUBIN, URINE AUTO NEGATIVE (NEGATIVE); BLOOD, URINE BLOOD NEGATIVE (NEGATIVE); COLOR, URINE YELLOW (YELLOW); GLUCOSE, URINE (UA) AUTO NEGATIVE (NEGATIVE); KETONE, URINE AUTO NEGATIVE (NEGATIVE); LEUKOCYTE ESTERASE, URINE AUTO NEGATIVE (NEGATIVE); NITRITE, URINE AUTO NEGATIVE (NEGATIVE); PROTEIN, URINE AUTO NEGATIVE (NEGATIVE); RBC, URINE AUTO 3 /HPF (0-3); SPECIFIC GRAVITY URINE AUTO 1.018 (1.002-1.035); SQUAMOUS EPITHELIAL CELL UR AU 0 /HPF (0-6); WBC, URINE AUTO 0 /HPF (0-3)
[2019-09-09 16:54] LABS: ALBUMIN 3.9 GM/DL (3.2-5.2); ALT/SGPT 26 U/L (12-78); BILIRUBIN,TOTAL 0.8 MG/DL (0.2-1.0); BLOOD UREA NITROGEN 13 MG/DL (7-18); CALCIUM LEVEL 9.2 MG/DL (8.5-10.1); CARBON DIOXIDE LEVEL 29 MEQ/L (21-32); CHLORIDE LEVEL 107 MEQ/L (98-107); CHOLESTEROL LEVEL 232 MG/DL (<200); CHOLESTEROL RISK RATIO 3.932 (<5); CREATININE FOR GFR 0.72 MG/DL (0.55-1.30); GLOMERULAR FILTRATION RATE > 60.0 (>51); GLUCOSE, FASTING 71 MG/DL (70-100); HDL CHOLESTEROL 59 MG/DL (>40); LDL CHOLESTEROL 127 MG/DL (<100); NON-HDL-C 173 MG/DL; POTASSIUM SERUM 4.7 MEQ/L (3.5-5.1); SODIUM LEVEL 141 MEQ/L (136-145); TOTAL PROTEIN 7.5 GM/DL (6.4-8.2); TRIGLYCERIDES LEVEL 232 MG/DL (<150)
[2019-09-09 18:01] LABS: HEMOGLOBIN A1c 5.5 %
== END ==
LOC: M WUC 12:03
PROVIDERS: ATTEND Family Medicine
DX: Z00.00 Encounter for general adult medical examination without abnormal findings (principal); R10.84 Generalized abdominal pain

== ENCOUNTER → 2021-04-03 | Outpatient (CLI) | payer OTHER ==
[~2021-04-03] MED LIST changes: +ACET650T61 PO; -TYLE650T35 PO
[2021-04-03 16:39] LABS: BASO % 0.3 % (0.0-1.0); EOS # 0.1 10^3/uL (0.0-0.5); EOS % 1.4 % (0.0-3.0); HEMATOCRIT 43.7 % (36.0-47.0); HEMOGLOBIN 14.7 g/dl (12.0-15.5); LYMPH # 1.9 10^3/uL (1.5-5.0); LYMPH % 27.1 % (24.0-44.0); MEAN CORPUSCULAR HEMOGLOBIN 30.8 pg (27.0-33.0); MEAN CORPUSCULAR HGB CONC 33.6 g/dl (32.0-36.5); MEAN CORPUSCULAR VOLUME 91.6 fl (80.0-96.0); MONO # 0.4 10^3/uL (0.0-0.8); MONO % 5.5 % (2.0-8.0); NEUTROPHILS # 4.5 10^3/uL (1.5-8.5); NEUTROPHILS % 65.4 % (36.0-66.0); PLATELET COUNT, AUTOMATED 223 10^3/uL (150-450); RED BLOOD COUNT 4.77 10^6/uL (4.00-5.40); WHITE BLOOD COUNT 6.9 10^3/uL (4.0-10.0)
[2021-04-03 17:25] LABS: ALBUMIN 3.9 GM/DL (3.2-5.2); ALT/SGPT 22 U/L (12-78); BILIRUBIN,TOTAL 0.5 MG/DL (0.2-1.0); BLOOD UREA NITROGEN 20 MG/DL (7-18); CALCIUM LEVEL 9.3 MG/DL (8.5-10.1); CARBON DIOXIDE LEVEL 26 MEQ/L (21-32); CHLORIDE LEVEL 106 MEQ/L (98-107); CHOLESTEROL LEVEL 233 MG/DL (<200); CHOLESTEROL RISK RATIO 3.281 (<5); CREATININE FOR GFR 0.64 MG/DL (0.55-1.30); GLOMERULAR FILTRATION RATE > 60.0 (>51); GLUCOSE, FASTING 95 MG/DL (70-100); HDL CHOLESTEROL 71 MG/DL (>40); LDL CHOLESTEROL 143 MG/DL (<100); NON-HDL-C 162 MG/DL; POTASSIUM SERUM 4.2 MEQ/L (3.5-5.1); SODIUM LEVEL 140 MEQ/L (136-145); TRIGLYCERIDES LEVEL 95 MG/DL (<150)
== END ==
LOC: M WUC 15:00
PROVIDERS: ATTEND Family Medicine
DX: Z00.00 Encounter for general adult medical examination without abnormal findings (principal)

== ENCOUNTER → 2021-04-10 | Outpatient (CLI) | payer OTHER ==
--- NOTE | 2021-04-10 13:38 | REPMRS ---
Patient History The patient states she has not had a clinical breast exam in over a year. Patient is postmenopausal. Family history of unknown cancer in mother, liver cancer in father, thyroid cancer in sister. Benign radio exam breast specimen of the right breast, October 24, 2014. Benign localization of breast nodule of the right breast, October 24, 2014. No breast complaints today Patient signed the MRS sheet Priors done @ [facility] Patient Identification Verified Digital Woman Screen Mammo: April 10, 2021 - Exam #: [id number] Bilateral CC and MLO view(s) were taken. Technologist: Carola Stauffer, Technologist FINDINGS: There are scattered fibroglandular densities. Screening. Digital screening (2D) mammography was performed bilaterally in the CC and MLO projections. Additionally, breast tomosynthesis (3D mammography) was performed bilaterally in the CC and MLO projections. Todays exam was compared to the prior exams.There are no prior DBT images for comparison. By history, the patient has no complaints of a palpable breast abnormality or other significant breast complaints. The breasts are unchanged in size and shape. There are no mo-soft tissue densities or spiculated masses. There is no internal architectural distortion. There are no suspicious mo-calcific clusters. Skin thickening or nipple retraction is not present. IMPRESSION: BI-RADS Category 2- Benign Findings. There is no evidence of malignant alteration of the breasts. Followup examination recommended in one year. The Volpara volumetric breast density category is B, there are scattered areas of fibroglandular density. This mammogram was read with the assistance of [employer],an FDA approved computer aided detection system for mammography. The lifetime Tyrer-Cuzick score is 7.1 % Negative x-ray reports should not delay surgical consultation if a dominant or clinically suspicious mass is present. Not all breast cancers can be identified by mammography. Therefore, we recommend that you continue to perform regular breast self-examination and physical examination and then promptly contact your physician of any concerns or changes. Adenosis and dense breasts may obscure an underlying neoplasm. Assessment: BI-RADS/ACR category 2 mammogram. Benign Findings. Recommendation Routine screening mammogram of both breasts in 1 year. Electronically Signed By: Delgado Pino DO 04/10/21 0671
== END ==
LOC: M WHC 12:26
PROVIDERS: ATTEND Family Medicine
DX: Z12.31 Encounter for screening mammogram for malignant neoplasm of breast (principal)

== ENCOUNTER → 2023-06-23 | Outpatient (CLI) | payer OTHER | LOC: M WHC 13:41 | PROVIDERS: ATTEND Family Medicine | DX: Z12.31 Encounter for screening mammogram for malignant neoplasm of breast (principal) ==

== ENCOUNTER → 2023-07-03 | Outpatient (CLI) | payer OTHER | LOC: M WHC 09:53 | PROVIDERS: ATTEND Registered Nurse | DX: R92.8 Other abnormal and inconclusive findings on diagnostic imaging of breast (principal) ==

== ENCOUNTER → 2024-05-06 | Outpatient (CLI) | payer OTHER ==
[2024-05-06 17:42] LABS: BASO % 0.5 % (0.0-1.0); EOS # 0.1 10^3/uL (0.0-0.5); EOS % 2.3 % (0.0-3.0); HEMATOCRIT 44.9 % (36.0-47.0); HEMOGLOBIN 14.9 g/dl (12.0-15.5); LYMPH # 1.5 10^3/uL (1.5-5.0); LYMPH % 24.5 % (24.0-44.0); MEAN CORPUSCULAR HEMOGLOBIN 30.9 pg (27.0-33.0); MEAN CORPUSCULAR HGB CONC 33.2 g/dl (32.0-36.5); MEAN CORPUSCULAR VOLUME 93.2 fl (80.0-96.0); MONO # 0.4 10^3/uL (0.0-0.8); MONO % 7.3 % (2.0-8.0); NEUTROPHILS # 3.9 10^3/uL (1.5-8.5); NEUTROPHILS % 65.2 % (36.0-66.0); PLATELET COUNT, AUTOMATED 206 10^3/uL (150-450); RED BLOOD COUNT 4.82 10^6/uL (4.00-5.40)
[2024-05-06 17:47] LABS: ALBUMIN 3.9 G/DL (3.2-5.2); ALKALINE PHOSPHATASE 113 U/L (46-116); ALT/SGPT 20 U/L (7.0-40); AST/SGOT 10 U/L (<34); BILIRUBIN,TOTAL 0.8 MG/DL (0.3-1.2); BLOOD UREA NITROGEN 17 MG/DL (9-23); CALCIUM LEVEL 9.3 MG/DL (8.5-10.1); CARBON DIOXIDE LEVEL 28 MMOL/L (20-31); CHLORIDE LEVEL 108 MMOL/L (98-107); CHOLESTEROL LEVEL 205 MG/DL (<200); CHOLESTEROL RISK RATIO 4.27 (<5); CREATININE FOR GFR 0.57 MG/DL (0.55-1.30); GLOMERULAR FILTRATION RATE > 60.0 (>51); GLUCOSE, FASTING 88 MG/DL (60-100); HDL CHOLESTEROL 47.9 MG/DL (>40); LDL CHOLESTEROL 131.3 MG/DL (<100); NON-HDL-C 157.1 MG/DL; POTASSIUM SERUM 4.3 MMOL/L (3.5-5.1); SODIUM LEVEL 141 MMOL/L (136-145); TOTAL PROTEIN 6.8 G/DL (5.7-8.2); TRIGLYCERIDES LEVEL 129 MG/DL (<150)
== END ==
LOC: M WUC 10:51
PROVIDERS: ATTEND Registered Nurse
DX: Z00.00 Encounter for general adult medical examination without abnormal findings (principal)

== ENCOUNTER → 2024-05-10 | Outpatient (REF) | payer OTHER | LOC: M LAB REF 17:07 | PROVIDERS: ATTEND Registered Nurse | DX: Z00.00 Encounter for general adult medical examination without abnormal findings (principal) ==

== ENCOUNTER → 2024-12-09 | Outpatient (CLI) | payer OTHER | LOC: M WUC 15:09 | PROVIDERS: ATTEND Student in an Organized Health Care Education/Training Program | DX: M25.572 Pain in left ankle and joints of left foot (principal); M77.32 Calcaneal spur, left foot ==

== ENCOUNTER → 2025-02-28 | Outpatient (CLI) | payer OTHER | LOC: M WHC 12:33 | PROVIDERS: ATTEND Family Medicine | DX: Z12.31 Encounter for screening mammogram for malignant neoplasm of breast (principal) ==

== ENCOUNTER → 2025-05-12 | Outpatient (CLI) | payer OTHER ==
[2025-05-12 14:52] LABS: BASO # 0.0 10^3/uL (0.0-0.2); BASO % 0.4 % (0.0-1.0); EOS # 0.1 10^3/uL (0.0-0.5); EOS % 2.5 % (0.0-3.0); LYMPH # 1.5 10^3/uL (1.5-5.0); LYMPH % 25.8 % (24.0-44.0); MONO # 0.4 10^3/uL (0.0-0.8); MONO % 7.8 % (2.0-8.0); NEUTROPHILS # 3.6 10^3/uL (1.5-8.5); NEUTROPHILS % 63.3 % (36.0-66.0); PLATELET COUNT, AUTOMATED 218 10^3/uL (150-450)
[2025-05-12 15:22] LABS: ALT/SGPT 28 U/L (7.0-40); AST/SGOT 19 U/L (<34); CALCIUM LEVEL 9.3 MG/DL (8.5-10.1); CARBON DIOXIDE LEVEL 27 MMOL/L (20-31); CHLORIDE LEVEL 104 MMOL/L (98-107); CHOLESTEROL LEVEL 217 MG/DL (<200); CHOLESTEROL RISK RATIO 4.10 (<5); CREATININE FOR GFR 0.66 MG/DL (0.55-1.30); GLOMERULAR FILTRATION RATE > 90.0 (>51); LDL CHOLESTEROL 142.1 MG/DL (<100); NON-HDL-C 164.1 MG/DL; POTASSIUM SERUM 4.4 MMOL/L (3.5-5.1); SODIUM LEVEL 144 MMOL/L (136-145); TRIGLYCERIDES LEVEL 110 MG/DL (<150)
== END ==
LOC: M WUC 10:59
PROVIDERS: ATTEND Registered Nurse
DX: Z00.00 Encounter for general adult medical examination without abnormal findings (principal); E78.2 Mixed hyperlipidemia